=== PATIENT | female | born 1970 | race Caucasian/White ===

== ENCOUNTER 2016-09-11 07:53 | Emergency (ER) | payer BC ==
[2016-09-11 08:05] VITALS: BP 105/72
--- NOTE | 2016-09-11 08:50 | UC ---
Respiratory Complaint HPI - HPI Summary HPI Summary: for past 2 weeks, productive cough, body aches, Saw PCP on Wednesday, prescribed Z pack for bronchitis, and sinus infection , states feeling worse with sob and productive cough. Sinuses still hurt but slightly better. today is last day of zpack. no nebulizer, inhaler, steroid or CXR were ordered. + smoker. hasnt smoked in 4 days due to illness and determined to quit now. using netti pot tid but no steroid nasal spray. Had back pain with cough last night but that has resolved since then. denies chest pain. breathing feels tight. - History of Current Complaint Chief Complaint: UCGeneralIllness Stated Complaint: COUGH,SINUSES,BACK/CHEST PAIN Time Seen by Provider: 09/11/16 08:49 Hx Last Menstrual Period: 08/29/16 - Allergies/Home Medications Allergies/Adverse Reactions: Allergies Allergy/AdvReac Type Severity Reaction Status Date / Time Mesalamine [From Pentasa] Allergy Fever Verified 09/11/16 08:05 Home Medications: Home Medications Azithromycin TAB* [Zithromax TAB (Z-ANTOINETTE) 250 mg #6 tabs] 250 mg PO DAILY [History Confirmed 09/11/16] PMH/Surg Hx/FS Hx/Imm Hx Previously Healthy: Yes Endocrine History Of: Denies: Diabetes Cardiovascular History Of: Denies: Hypertension, Congestive Heart Failure GI/ History Of: Denies: Renal Disease - Surgical History Surgical History: Yes Surgery Procedure, Year, and Place: no abdomen surgery; tubal ligation 1999; Rt ankle with ORIF @ [facility] with Dr. Eli 14 yrs ago; Rt achilles tendon repair too; - Family History Known Family History: Negative: Respiratory Disease - no asthma - Social History Alcohol Use: Weekly Substance Use Type: None Smoking Status (MU): Heavy Every Day Tobacco Smoker Type: Cigarettes Amount Used/How Often: 1/2 ppd Length of Time of Smoking/Using Tobacco: 20 yrs Have You Smoked in the Last Year: Yes Review of Systems Constitutional: Fatigue Skin: Negative Eyes: Negative ENT: Negative, Other - sinus pain over forehead and cheeks. Respiratory: Negative Cardiovascular: Negative Gastrointestinal: Negative Genitourinary: Negative Motor: Negative Neurovascular: Negative Musculoskeletal: Negative Neurological: Negative Psychological: Negative All Other Systems Reviewed And Are Negative: Yes Physical Exam Triage Information Reviewed: Yes Appearance: Well-Nourished, Ill-Appearing - moderate cough, very pleasant. Vital Signs: Initial Vital Signs Temp 98.4 F 09/11/16 08:00 Pulse 76 09/11/16 08:00 Resp 16 09/11/16 08:00 BP 105/72 09/11/16 08:00 Pulse Ox 98 09/11/16 08:00 Vital Signs Reviewed: Yes Eye Exam: Normal ENT: Positive: Pharyngeal erythema, Nasal drainage, TMs normal, Other: - + b/l sinus tenderness. Negative: Tonsillar swelling, Tonsillar exudate Dental Exam: Normal Neck exam: Normal Neck: Positive: Supple, Nontender, No Lymphadenopathy Respiratory: Positive: No respiratory distress, No accessory muscle use, Decreased breath sounds, Rhonchi, Wheezing. Negative: Stridor Cardiovascular Exam: Normal Cardiovascular: Positive: RRR, No Murmur, Pulses Normal, Brisk Capillary Refill Abdomen Description: Positive: Nontender, Soft Musculoskeletal Exam: Normal Neurological Exam: Normal Psychological Exam: Normal Skin Exam: Normal UC Diagnostic Evaluation - Laboratory O2 Sat by Pulse Oximetry: 98 Re-Evaluation - Re-Evaluation First Eval Re-Evaluation Time: 09:20 Change: Improved - much improved after nebulizer, mild wheezing only. feels better with lessening cough. Respiratory Course/Dx - Course Course Of Treatment: CXR - neg. alb neb - improved. We discusse risks of prednisone including but not limited to anxiety, agitation, insomnia, GI upset, elevated blood pressures and blood sugar readings, adrenal crisis and avascular necrosis of the hip. She has very well controlled h/o crohns and is not requiring meds at this time. was on entecort in the past. - Differential Dx/Diagnosis Differential Diagnosis/HQI/PQRI: Asthma, Bronchitis, Sinusitis, Other - pneumonia Provider Diagnoses: sinusitis, smoker Discharge - Discharge Plan Condition: Stable Disposition: HOME Prescriptions: Albuterol HFA INHALER* [Ventolin HFA Inhaler*] 2 puff INH Q4H PRN #1 mdi PRN Reason: Cough Methylprednisolone [Medrol Dosepak 4 MG*] 4 mg PO DAILY #1 antoinette Patient Education Materials: Sinusitis (ED), Acute Bronchitis (ED) Forms: *Work Release Referrals: Julissa Gonzalez MD [Primary Care Provider] - 3 Days Additional Instructions: Continue with saline rinses and add OTC steroid nasal spray such as flonase. Take an OTC probiotic every day that you are on an antibiotic to help prevent complications of c diff from antibiotic use. Tylenol for pain/discomfort/fever.
[2016-09-11] MEDS ORDERED: Albuterol 2.5 MG/3 ML NEB.SOL* (0.083%) INH ONE (08:55)
--- NOTE | 2016-09-11 09:09 | RAD ---
INDICATION: Cough, wheezing, smoker. COMPARISON: There are no prior studies available for comparison. TECHNIQUE: Dual-energy PA and lateral views of the chest were obtained. FINDINGS: The heart is within normal limits in size. Mediastinal and hilar contours appear within normal limits. The lungs are clear. No pleural effusion is present. IMPRESSION: NO EVIDENCE FOR ACTIVE CARDIOPULMONARY DISEASE.
== END 2016-09-11 09:35 | disposition home or self-care (01) ==
LOC: UCCORT 07:53
DX: J32.9 Chronic sinusitis, unspecified (principal); Z88.8 Allergy status to other drugs, medicaments and biological substances; F17.210 Nicotine dependence, cigarettes, uncomplicated
CPT/HCPCS: 71020; 99212; G0463

== ENCOUNTER 2017-01-12 15:00 | Emergency (ER) | payer BC ==
[2017-01-12 15:24] VITALS: BP 113/73
--- NOTE | 2017-01-12 15:40 | UC ---
Complaint Female HPI - HPI Summary HPI Summary: patient has had dysuria, increased frequency and lower abdominal pressure for the past 2 days. - History Of Current Complaint Chief Complaint: UCGU Stated Complaint: URINARY Time Seen by Provider: 01/12/17 15:11 Hx Obtained From: Patient Hx Last Menstrual Period: 12/21/16 Onset/Duration: Sudden Onset, Lasting Days Timing: Lasting Days Severity Initially: Mild Severity Currently: Mild Character: Burning Aggravating Factor(s): Urination Associated Signs And Symptoms: Positive: Negative - Allergies/Home Medications Allergies/Adverse Reactions: Allergies Allergy/AdvReac Type Severity Reaction Status Date / Time Mesalamine [From Pentasa] Allergy Fever Verified 01/12/17 15:18 Home Medications: Home Medications Loratadine [Claritin 10 MG CAP] 10 mg PO DAILY 01/12/17 [History Confirmed 01/12] PMH/Surg Hx/FS Hx/Imm Hx Previously Healthy: Yes - Surgical History Surgical History: Yes Surgery Procedure, Year, and Place: no abdomen surgery; tubal ligation 1999; Rt ankle with ORIF @ [facility] with Dr. Eli 14 yrs ago; Rt achilles tendon repair too; - Family History Known Family History: Negative: Respiratory Disease - no asthma - Social History Alcohol Use: Weekly Substance Use Type: None Smoking Status (MU): Heavy Every Day Tobacco Smoker Type: Cigarettes Amount Used/How Often: 1/2-1 PPD Length of Time of Smoking/Using Tobacco: 20 yrs Have You Smoked in the Last Year: Yes Review of Systems Constitutional: Negative Skin: Negative Eyes: Negative ENT: Negative Respiratory: Negative Cardiovascular: Negative Gastrointestinal: Negative Genitourinary: Dysuria, Hematuria, Frequency, Urgency Motor: Negative Neurovascular: Negative Musculoskeletal: Negative Neurological: Negative Psychological: Negative All Other Systems Reviewed And Are Negative: Yes Physical Exam Triage Information Reviewed: Yes Appearance: Well-Appearing, Well-Nourished, Pain Distress Vital Signs: Initial Vital Signs Temp 98.4 F 01/12/17 15:19 Pulse 59 01/12/17 15:19 Resp 16 01/12/17 15:19 BP 113/73 01/12/17 15:19 Pulse Ox 100 01/12/17 15:19 Vital Signs Reviewed: Yes Eye Exam: Normal Eyes: Positive: Conjunctiva Clear ENT Exam: Normal Dental Exam: Normal Neck exam: Normal Neck: Positive: Supple, Nontender, No Lymphadenopathy Respiratory Exam: Normal Respiratory: Positive: Chest non-tender, Lungs clear, Normal breath sounds Cardiovascular Exam: Normal Cardiovascular: Positive: RRR, No Murmur, Pulses Normal Abdominal Exam: Normal Abdomen Description: Positive: No Organomegaly, Soft, CVA Tenderness (R) - neg, CVA Tenderness (L) - neg, Other: - lower abdominal tenderness with palpation Bowel Sounds: Positive: Present Musculoskeletal Exam: Normal Musculoskeletal: Positive: Strength Intact, ROM Intact Neurological Exam: Normal Psychological Exam: Normal Skin Exam: Normal Complaint Female Dx - Course Course Of Treatment: hx obtained, exam performed ,meds reviewed, UA and culture obtained, treated for UTI - Differential Dx/Diagnosis Differential Diagnosis/HQI/PQRI: Sexually Transmitted Disease, Ureteral Stone, Urinary Tract Infection Provider Diagnoses: Dysuria. hematuria Discharge - Discharge Plan Condition: Stable Disposition: HOME Prescriptions: Ciprofloxacin TAB* [Cipro 500 MG TAB*] 500 mg PO BID #6 tab Patient Education Materials: Dysuria (ED) Referrals: Julissa Gonzalez MD [Primary Care Provider] - Additional Instructions: 1. take the medication as prescribed. 2. Increase fluid intake 3. Continue with AZO for the next 24 hours. 4. Culture will be sent and if further treatment is needed we will be calling you.
== END 2017-01-12 15:44 | disposition home or self-care (01) ==
LOC: UCCORT 15:00
DX: R30.0 Dysuria (principal); R31.9 Hematuria, unspecified; F17.210 Nicotine dependence, cigarettes, uncomplicated
CPT/HCPCS: 81003; 87086; 99212; G0463

== ENCOUNTER 2017-06-11 09:23 | Emergency (ER) | payer BC ==
--- NOTE | 2017-06-11 09:44 | UC ---
Throat Pain/Nasal Rashel HPI - HPI Summary HPI Summary: 47 year old female presents with complains sore throat. - History of Current Complaint Stated Complaint: SORE THROAT RESPIRATORY Time Seen by Provider: 06/11/17 09:43 Hx Obtained From: Patient Hx Last Menstrual Period: 12/21/16 Onset/Duration: Sudden Onset Severity: Moderate Pain Scale Used: 0-10 Numeric - 7 Cough: Nonproductive Associated Signs & Symptoms: Positive: Dysphagia - Allergies/Home Medications Allergies/Adverse Reactions: Allergies Allergy/AdvReac Type Severity Reaction Status Date / Time Mesalamine [From Pentasa] Allergy Fever Verified 06/11/17 09:47 Home Medications: Home Medications Budesonide [Entocort EC] 3 tab DAILY 06/11/17 [History Confirmed 06/11/17] PMH/Surg Hx/FS Hx/Imm Hx Previously Healthy: Yes - Surgical History Surgical History: Yes Surgery Procedure, Year, and Place: no abdomen surgery; tubal ligation 1999; Rt ankle with ORIF @ [facility] with Dr. lEi 14 yrs ago; Rt achilles tendon repair too; - Family History Known Family History: Negative: Respiratory Disease - no asthma - Social History Alcohol Use: Weekly Substance Use Type: None Smoking Status (MU): Heavy Every Day Tobacco Smoker Type: Cigarettes Amount Used/How Often: 1/2-1 PPD Length of Time of Smoking/Using Tobacco: 20 yrs Have You Smoked in the Last Year: Yes Review of Systems Constitutional: Negative Skin: Negative Eyes: Negative ENT: Sore Throat, Nasal Discharge, Sinus Congestion, Sinus Pain/Tenderness Respiratory: Negative Cardiovascular: Negative Gastrointestinal: Negative Genitourinary: Negative Motor: Negative Neurovascular: Negative Musculoskeletal: Negative Neurological: Negative Psychological: Negative All Other Systems Reviewed And Are Negative: Yes Physical Exam Triage Information Reviewed: Yes Vital Signs Reviewed: Yes Eye Exam: Normal ENT: Positive: Pharyngeal erythema, Nasal congestion, Nasal drainage Dental Exam: Normal Neck exam: Normal Neck: Positive: 1 Respiratory Exam: Normal Cardiovascular Exam: Normal Abdominal Exam: Normal Musculoskeletal Exam: Normal Neurological Exam: Normal Psychological Exam: Normal Skin Exam: Normal Throat Pain/Nasal Course/Dx - Differential Dx/Diagnosis Provider Diagnoses: pharyngitis Discharge - Discharge Plan Condition: Stable Disposition: HOME Prescriptions: Azithromyxin ELIAS (NF) [Z-Elias (Zithromax) 250 mg tabs #6] 2 tab PO .TODAY, THEN 1 DAILY #6 tab LoraTADine TAB(NF) [Claritin 10 MG TAB(NF)] 10 mg PO DAILY #30 tab Magic M W2 Magdi/Maal/Nyst/Lido* 5 ml SWISH SPIT QID PRN #120 ml PRN Reason: Pain Patient Education Materials: Pharyngitis (ED) Referrals: Julissa Gonzalez MD [Primary Care Provider] -
[2017-06-11 09:53] VITALS: BP 125/73
== END 2017-06-11 10:13 | disposition home or self-care (01) ==
LOC: UCCORT 09:23
DX: J02.9 Acute pharyngitis, unspecified (principal); F17.210 Nicotine dependence, cigarettes, uncomplicated
CPT/HCPCS: 87651; 99212; G0463

== ENCOUNTER 2017-10-19 17:46 | Emergency (ER) | payer BC ==
[2017-10-19 18:06] VITALS: BP 130/66
--- NOTE | 2017-10-19 18:27 | UC ---
Upper Extremity HPI - HPI Summary HPI Summary: 47 yo F with left wrist pain that she awoke with this am. States she golfed yest for the first time in months. No definite recalled injury. Also types for work. Has had ankle surg and left Achilles tendon surg in the past. Denies neck pain, or arm pain, and pain does not radiate. Is able to flex and extend her hand and wrist. Took ibuprofen for pain that helped with the pain. States she awoke with it in a "funny position", tucked under her head this am. - History of Current Complaint Chief Complaint: UCUpperExtremity Stated Complaint: LEFT WRIST PAIN Time Seen by Provider: 10/19/17 18:02 Hx Obtained From: Patient Hx Last Menstrual Period: 10/03/17 ?: No Onset/Duration: Sudden Onset Severity Initially: Moderate Severity Currently: Moderate Pain Intensity: 7 Pain Scale Used: 0-10 Numeric Location Of Pain: Is Discrete @ - left wrist Character: Dull, Aching Aggravating Factor(s): Movement, Lifting, Extension Alleviating Factor(s): Compression Associated Signs And Symptoms: Positive: Negative Related History: Dominant Hand Right - Allergies/Home Medications Allergies/Adverse Reactions: Allergies Allergy/AdvReac Type Severity Reaction Status Date / Time mesalamine Allergy Fever Verified 10/19/17 18:08 PMH/Surg Hx/FS Hx/Imm Hx Previously Healthy: Yes - Surgical History Surgical History: Yes Surgery Procedure, Year, and Place: no abdomen surgery; tubal ligation 1999; Rt ankle with ORIF @ [facility] with Dr. Eli 14 yrs ago; Rt achilles tendon repair too; - Family History Known Family History: Negative: Respiratory Disease - no asthma - Social History Occupation: Employed Full-time Alcohol Use: Weekly Substance Use Type: None Smoking Status (MU): Heavy Every Day Tobacco Smoker Type: Cigarettes Amount Used/How Often: 1/2-1 PPD Length of Time of Smoking/Using Tobacco: 20 yrs Have You Smoked in the Last Year: Yes - Immunization History Most Recent Influenza Vaccination: NO Review of Systems Constitutional: Negative Skin: Negative Respiratory: Negative Cardiovascular: Negative Gastrointestinal: Negative Motor: Other - pain with ROM left wrist Neurovascular: Negative Musculoskeletal: Arthralgia - pain left wrist Neurological: Negative Psychological: Negative Is Patient Immunocompromised?: No All Other Systems Reviewed And Are Negative: Yes Physical Exam Triage Information Reviewed: Yes Appearance: Well-Appearing, Well-Nourished, Pain Distress Vital Signs: Initial Vital Signs Temp 99.3 F 10/19/17 18:01 Pulse 67 10/19/17 18:01 Resp 17 10/19/17 18:01 BP 130/66 10/19/17 18:01 Pulse Ox 99 10/19/17 18:01 Vital Signs Reviewed: Yes Eyes: Positive: Conjunctiva Clear ENT: Positive: Normal ENT inspection Neck: Positive: Supple, Nontender, No Lymphadenopathy Respiratory: Positive: No respiratory distress Cardiovascular: Positive: Pulses Normal, Brisk Capillary Refill Musculoskeletal: Positive: Strength Intact, ROM Intact, Other: - point tenderness just distal to ulnar styloid, no bony tenderness, min swelling, no redness, full ROM, sensation intact. No hand pain, swelling or tenderness, no elbow or shoulder pain swelling or tenderness Neurological: Positive: Alert Psychological Exam: Normal Skin Exam: Normal Diagnostics - Radiology left wrist Xray Interpretation: Positive (See Comments) Radiology Interpretation Completed By: Radiologist Upper Extremity Course/Dx - Course Course Of Treatment: xray with age indeterminate avulsion fracture. Advised pt to wear cock up splint and have definite follow up with Dr. Celestin in 1-2 days. - Differential Dx/Diagnosis Differential Diagnosis/HQI/PQRI: Contusion, Fracture (Closed), Strain, Sprain Provider Diagnoses: left wrist pain. left wrist avulsion fracture. left wrist sprain Discharge - Sign-Out/Discharge Documenting (check all that apply): Discharge/Admit/Transfer - discharge home - Discharge Plan Condition: Stable Disposition: HOME Patient Education Materials: Wrist Sprain (ED) Forms: *Work Release Referrals: Anuel Celestin MD [Medical Doctor] - 1 Day (eval for avulsion fracture, acute vs remote ) Julissa Gonzalez MD [Primary Care Provider] - Additional Instructions: We have given you a wrist splint that you may wear until you are seen by Dr. Celestin, the orthopedist. The xray shows a possible avulsion (chip fracture), where the tendon sometimes pulls off a chip of bone. It is uncertain from the xray whether this is old or new, and may represent a new fracture, or may be aggravation of a prior undetected injury. Please wear the splint until you are seen by Dr. Celestin. 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 Celestin can see you. You may take ibuprofen, elevate the wrist, use ice, and rest the wrist as much as possible. Return to urgent care if you have new or worsening symptoms. - Billing Disposition and Condition Condition: STABLE Disposition: HOME
--- NOTE | 2017-10-19 18:38 | RAD ---
HISTORY: Left wrist pain COMPARISONS: None VIEWS: 3, Frontal, lateral, and oblique views of the left wrist FINDINGS: BONE DENSITY: Normal. BONES: There is no displaced fracture. There is a well-corticated bone fragment along the dorsal aspect of the ulnar styloid process. There are small bone fragments along the dorsal aspect of the proximal carpal row. JOINTS: There is no arthropathy. ALIGNMENT: There is no dislocation. SOFT TISSUES: Unremarkable. OTHER FINDINGS: None. IMPRESSION: 1. SMALL BONE FRAGMENT ALONG THE DORSAL ASPECT OF THE DORSAL CARPAL ROW SMALL BONE FRIENDS ALONG THE DORSAL ASPECT OF THE PROXIMAL CARPAL ROW WHICH MAY REFLECT AVULSION INJURY. 2. WELL CORTICATED BONE FRAGMENT OF THE ULNAR STYLOID PROCESS WHICH MAY REFLECT REMOTE AVULSION INJURY.
== END 2017-10-19 19:05 | disposition home or self-care (01) ==
LOC: UCCORT 17:46
DX: S52.612A Displaced fracture of left ulna styloid process, initial encounter for closed fracture (principal); S62.102A Fracture of unspecified carpal bone, left wrist, initial encounter for closed fracture; S63.502A Unspecified sprain of left wrist, initial encounter; X58.XXXA Exposure to other specified factors, initial encounter; Y92.9 Unspecified place or not applicable; F17.210 Nicotine dependence, cigarettes, uncomplicated; Z88.8 Allergy status to other drugs, medicaments and biological substances
CPT/HCPCS: 99212; G0463

== ENCOUNTER 2019-04-27 11:53 | Inpatient (IN) | payer BC ==
[2019-04-27] MEDS ORDERED: Morphine 4 MG/ML VIAL (1 ml) 4 MG/ML VIAL IV ONE ×2 (12:15→15:03)
[2019-04-27] MEDS ORDERED: Ondansetron INJ* 2 MG/ML VIAL IV ONE (12:15)
--- NOTE | 2019-04-27 12:17 | ED ---
Abdominal Pain/Female - HPI Summary HPI Summary: This patient is a 49-year-old female with a history of mild Crohn's presenting to the ED with a 4 day history of nausea, vomiting, bloating, abdominal pain diffusely throughout, watery diarrhea which is malodorous and decreased by mouth intake. She states on Wednesday, 4 days ago, she developed nausea and vomiting with associated abdominal pain. Since then she has had no other vomiting episodes, however endorses bloating as well as profuse diarrhea, approximately 3-4 times per day which is watery in consistency. She does have a history of Crohn's however has never had anything to this severity before. She denies any fevers, sweats, chills. Since 4 days ago, she has only had 1 L of nicole mandy as well as a few crackers, however has not eaten anything otherwise. Abd surgeries include tubal ligation in 1999. Last PO intake was 1 cracker and 1 cup of water at around 7am. Has not taken any medications over the counter for relief until this morning when she took gas-x. Pt currently taking Endocort, but has been trying to reduce, so has only been taking 1 tab instead of 3. - last dose 4 days ago. Pain rated 10/10. N/V/D 4/10. Endorses smoking hx. - History of Current Complaint Chief Complaint: EDAbdPain Stated Complaint: SEVERE ABDOMINAL PAIN PER PT Time Seen by Provider: 04/27/19 12:05 Hx Obtained From: Patient Hx Last Menstrual Period: 10/03/17 ?: No Onset/Duration: Sudden Onset Timing: Constant Severity Initially: Moderate Severity Currently: Moderate Pain Intensity: 10 Pain Scale Used: 0-10 Numeric Location: Diffuse Radiates: No Character: Cramping Aggravating Factor(s): Nothing Alleviating Factor(s): Nothing Associated Signs and Symptoms: Positive: Decreased Appetite, Nausea, Vomiting, Diarrhea - Risk Factors Ectopic Risk Factor: Negative Ovarian Torsion Risk Factor: Negative Allergies/Adverse Reactions: Allergies Allergy/AdvReac Type Severity Reaction Status Date / Time mesalamine Allergy Fever Verified 04/27/19 11:56 Home Medications: Home Medications Simethicone [Gas-X Extra Strength] 125 mg PO DAILY 04/27/19 [History Confirmed 04/27/19] PMH/Surg Hx/FS Hx/Imm Hx Previously Healthy: Yes Endocrine/Hematology History: Denies: Hx Diabetes, Hx Systemic Lupus Erythematosus Cardiovascular History: Denies: Hx Congestive Heart Failure, Hx Hypertension History: Denies: Hx Dialysis, Hx Renal Disease Musculoskeletal History: Denies: Hx Rheumatoid Arthritis - Cancer History Hx Chemotherapy: No - Surgical History Surgery Procedure, Year, and Place: no abdomen surgery; tubal ligation 1999; Rt ankle with ORIF @ [facility] with Dr. Eli 14 yrs ago; Rt achilles tendon repair too; - Immunization History Hx Pertussis Vaccination: No Immunizations Up to Date: Yes Infectious Disease History: No Infectious Disease History: Denies: Traveled Outside the [place] in Last 30 Days - Family History Known Family History: Negative: Respiratory Disease - no asthma - Social History Occupation: Employed Full-time Lives: With Family Alcohol Use: Weekly Hx Substance Use: No Substance Use Type: Reports: None Hx Tobacco Use: Yes Smoking Status (MU): Heavy Every Day Tobacco Smoker Type: Cigarettes Amount Used/How Often: 1/2-1 PPD Length of Time of Smoking/Using Tobacco: 20 yrs Have You Smoked in the Last Year: Yes Review of Systems Negative: Fever, Chills, Fatigue, Skin Diaphoresis Negative: Epistaxis, Dental Pain Negative: Palpitations, Chest Pain Positive: Abdominal Pain, Vomiting, Diarrhea, Nausea Genitourinary: Negative Positive: no symptoms reported, see HPI Negative: Arthralgia, Myalgia Skin: Negative All Other Systems Reviewed And Are Negative: Yes Physical Exam Triage Information Reviewed: Yes Vital Signs On Initial Exam: Initial Vitals Temp Pulse Resp BP Pulse Ox 96.9 F 85 16 128/96 98 04/27/19 11:53 04/27/19 11:53 04/27/19 11:53 04/27/19 11:53 04/27/19 11:53 Vital Signs Reviewed: Yes Appearance: Positive: Well-Appearing, Well-Nourished Skin: Positive: Warm, Skin Color Reflects Adequate Perfusion Head/Face: Positive: Normal Head/Face Inspection Eyes: Positive: EOMI, DARIN, Conjunctiva Clear Neck: Positive: Supple, No Lymphadenopathy Respiratory/Lung Sounds: Positive: Clear to Auscultation, Breath Sounds Present Cardiovascular: Positive: RRR, Pulses are Symmetrical in both Upper and Lower Extremities Abdomen Description: Positive: Other: - painful throughout Bowel Sounds: Positive: Present Musculoskeletal: Positive: Normal, Strength/ROM Intact Neurological: Positive: Speech Normal Psychiatric: Positive: Normal, Affect/Mood Appropriate AVPU Assessment: Alert Procedures - Sedation Patient Received Moderate/Deep Sedation with Procedure: No Diagnostics - Vital Signs Vital Signs Temp Pulse Resp BP Pulse Ox 04/27/19 11:53 96.9 F 85 16 128/96 98 - Laboratory Result Diagrams: 04/27/19 12:29 04/27/19 12:29 Lab Statement: Any lab studies that have been ordered have been reviewed, and results considered in the medical decision making process. Re-Evaluation - Re-Evaluation First Eval Change: Improved - improved following morphine and zofran Second Eval Change: Worse - pain resuming, requesting morphine again Third Eval Change: Unchanged - pain improved, offered NG tube - pt refused at this time Fourth Eval Change: Unchanged - Dr. Latham to see patient in room - hospitalist will admit Abdominal Pain Fem Course/Dx - Course Course Of Treatment: During his course of treatment, the patient's evaluated for nausea, vomiting, watery diarrhea which has since subsided, the past 4 days. Patient has not been able to eat and drink for the last 4 days and feels extremely bloated. Abdominal surgeries include tubal ligation in 1999. Patient is given morphine and Zofran with some relief. She continues to feel bloated, but pain and nausea has decreased. CT abdomen/pelvis obtained which shows small bowel obstruction with bowel loops measuring up to 4.4 cm transversely. There is mucosal thickening and enhancement of the distal small bowel. The differential includes inflammatory bowel disease. There is small amount of ascites. There is no appreciable free intraperitoneal gas. On reexamination, patient is continuing to have pain, so at this time 4 mg of morphine ordered as well as offered an NG tube. Patient is deferring at this time. Discussed case with Dr. Baca who suggests GI consult. Discussed with Dr. Latham who agrees GI will consult and suggests medical management. Dr Knowles, hospitalist will admit for medical management. Pt comfortable at this time and OK with plan. Labs WNL. - Diagnoses Differential Diagnosis: Positive: Other - adhesions, N/V/D, crohns disease, IBD Provider Diagnoses: Small bowel obstruction - Provider Notifications Discussed Care Of Patient With: Harvinder Latham - discussed with Dr. Baca and Dr. Knowles Time Discussed With Above Provider: 15:00 Instructed by Provider To: Admit As Inpatient Discharge ED - Sign-Out/Discharge Documenting (check all that apply): Patient Departure - Discharge Plan Condition: Fair Disposition: ADMITTED TO [facility] - Billing Disposition and Condition Condition: FAIR Disposition: Admitted to [facility] - Attestation Statements Provider Attestation: pt seen by midlevel provider independently, based on their assessment, it was not necessary to present the case to me but I was available for consultation. I did not form a physician-patient relationship with the patient. The chart however, has been reviewed. am signing this note strictly in an administrative capacity.
[2019-04-27 12:39] LABS: ABS Basophils 0.1 10^3/ul (0-0.2); ABS Eosinophils 0.1 10^3/ul (0-0.6); ABS Lymphocytes 1.1 10^3/ul (1.0-4.8); ABS Monocytes 0.5 10^3/ul (0-0.8); ABS Neutrophils 6.1 10^3/ul (1.5-7.7); Eosinophil % 1.6 %; Hematocrit 43 % (35-47); Hemoglobin 14.4 g/dL (12.0-16.0); Lymphocyte % 14.5 %; Mean Corpuscular HGB Conc 33 g/dL (31-36); Mean Corpuscular Hemoglobin 31 pg (27-31); Mean Corpuscular Volume 92 fL (80-97); Mean Platelet Volume 7.7 fL (7.4-10.4); Nucleated Red Blood Cells % 0.1; Platelet Count 289 10^3/uL (150-450); Red Blood Count 4.67 10^6 /uL (3.70-4.87); Red Cell Distribution Width 14 % (10-15); White Blood Count 7.9 10^3/uL (3.5-10.8)
[2019-04-27 12:42] LABS: INR 1.04 (0.82-1.09)
[2019-04-27 13:00] LABS: ALT 12 U/L (7-52); AST 11 U/L (13-39); Albumin/Globulin Ratio 1.3 (1-3); Alkaline Phosphatase 64 U/L (34-104); Anion Gap 9 mmol/L (2-11); BUN/Creatinine Ratio 15.1 (8-20); Blood Urea Nitrogen 11 mg/dL (6-24); C Reactive Protein 81.42 mg/L (<8.01); CO2 Carbon Dioxide 23 mmol/L (22-32); Calcium 9.2 mg/dL (8.6-10.3); Chloride 103 mmol/L (101-111); EGFR African American 101.7 (>60); Globulin 3.2 g/dL (2-4); Glucose 109 mg/dL (70-100); Magnesium 1.7 mg/dL (1.9-2.7); Potassium 3.4 mmol/L (3.5-5.0); Sodium 135 mmol/L (135-145); Total Protein 7.2 g/dL (6.4-8.9)
[2019-04-27 13:03] LABS: HCG Pregnancy 0.86 mIU/mL
[2019-04-27] MEDS ORDERED: Iohexol 300* (CONTRAST) 10 ML SDV IV ONE (13:55)
[2019-04-27] MEDS ORDERED: Magnesium Sulfate 2 GM IV* 2 GM/50 ML BAG IVPB ONE (15:16)
[2019-04-27] MEDS ORDERED: methylPREDNISolone SOD 40 MG* 1 ML VIAL IM SCH (16:00)
[2019-04-27] MEDS ORDERED: Lidocaine 2% VISCOUS* 15 ML UDC ONE ×2 (16:06→16:14)
--- NOTE | 2019-04-27 16:30 | CONS ---
CC: Dr. Ng * CONSULTATION REPORT: DATE OF CONSULT: 04/27/19 REQUESTING PHYSICIAN: Dr. aTmmy Knowles. REASON FOR CONSULT: Small bowel obstruction, Crohn's. HISTORY OF PRESENT ILLNESS: This is a very pleasant 49-year-old female with a history of predominantly ileal Crohn's, who presented to the ER with a 4-day history of nausea, vomiting, and abdominal pain and distention. Her pain has been diffuse, increasing over the last 2 to 3 days. She states that she has not passed flatus today. She denies any black or blood in the stool. She states that the stool has been more liquidy over the last few movements, having about 3 to 4 movements a day that are purely liquid in nature. Three to four days ago, she had a subjective fever with chills, but has not had any since. Denies any skin rash or lesions. Denies any weight gain or weight loss. She takes budesonide on a daily basis. She titrates this according to her symptomatology. She is currently on 1 pill daily. She has never been on a biologic. She has never had a resection. Her last colonoscopy was done in 2017 , which did not show any colonic activity of Crohn's. Remainder of the 14- point review of systems is grossly negative. PAST MEDICAL HISTORY: Small bowel Crohn's. PAST SURGICAL HISTORY: Tubal ligation, right ankle surgery, Achilles surgery. HOME MEDICATIONS: Budesonide 3 mg daily. ALLERGIES: No known drug allergies. FAMILY HISTORY: No family history of GI cancer or inflammatory bowel disease. SOCIAL HISTORY: Tobacco smoker, half pack to pack per day. Social alcohol use. REVIEW OF SYSTEMS: Remainder of the 14-point review of systems is grossly negative except for as described in the HPI. PHYSICAL EXAM: Vital Signs: Blood pressure is 128/96, pulse is 85, respiratory rate is 16, 98% on room air, temperature is 96.9. In general, alert and oriented x3, in no acute distress. HEENT: Atraumatic, normocephalic. Pupils equal, round, reactive to light. Extraocular movements are intact. Conjunctivae are pink. Sclerae are anicteric. Cardiovascular: Regular rate and rhythm. S1, S2. Respiratory: Clear to auscultation bilaterally. Abdomen: Soft. Mild diffuse tenderness to palpation, mild distention. Bowel sounds hypoactive. No guarding or rebound. Extremities: No clubbing, no cyanosis. Skin is without rash. Psych: Appropriate mood and affect. DIAGNOSTIC STUDIES/LAB DATA: Hemoglobin 14.4, WBC count is 7.9. INR 1.04. Potassium 3.4, lactic acid 0.7, magnesium 1.7. AST is 11, ALT is 12. CRP is 81.42. Beta hCG is 0.86. She had a CT done of the abdomen and pelvis. This was personally reviewed by myself. It reveals dilation of loops of the small bowel with a transition point around the distal terminal ileum. There is thickening and enhancement of this area. ASSESSMENT AND PLAN: This is a 49-year-old female with a history of predominantly small bowel Crohn's, admitted with a small bowel obstruction. 1. Small bowel obstruction. Appears like it may be inflammatory in nature given CT findings. I will do a trial of IV steroids. We would get stool cultures to make sure there is no infection, but we would not delay steroids given the patient does not have a fever and does not have a WBC count. Agree with surgical consult. Given the fact that she is not passing any flatus today , I think it is appropriate to place an NG tube to help accelerate decompression. I recommend having the surgical team follow in the periphery in case if services are needed. Hopefully, the steroids will turn her around. She may ultimately need escalation of her Crohn's therapy. In preparation for this, I would get a hepatitis serology and QuantiFERON-TB Gold in case a biologic is needed in the future. We will keep the patient n.p.o. today. 2. Predominantly small bowel Crohn's, on budesonide at home. Likely will need intensification of therapy. 3. DVT prophylaxis: Needs to be on heparin or Lovenox subcu given high risk of deep venous thrombosis in this patient population for prophylaxis. [id number]/[facility] #: [id number] BRIDGET
[2019-04-27 17:04] LABS: Hepatitis B Surface Antigen Nonreactive (Nonreactive)
[2019-04-27 17:21] LABS: Hepatitis B Surface Ab Not Immune (Immune)
[2019-04-27] MEDS: methylPREDNISolone SOD 40 MG* 1 ML VIAL IV SCH (18:36)
[2019-04-27] MEDS: Morphine 10 MG/ML VIAL (1 ml) IV PRN ×2 (18:37→22:01)
--- NOTE | 2019-04-27 19:35 | HP ---
AMENDED REPORT NOW INCLUDES DESIGNATED COSIGNER ADMISSION HISTORY AND PHYSICAL: DATE OF ADMISSION: 04/27/19 PRIMARY CARE PHYSICIAN: Julissa Gonzalez MD PROVIDER: Shaunna Freitas NP ATTENDING PHYSICIAN: Dr. Knowles.* (DICTATED BY SHAUNNA FREITAS NP) OTHER PROVIDER: Dr. Latham. CHIEF COMPLAINT: Nausea, vomiting, abdominal pain. HISTORY OF PRESENT ILLNESS: This is a 49-year-old female with a past medical history of mild Crohn's who presented to the emergency room on 04/27/19 after a 4- day history of nausea, vomiting, and watery diarrhea. On Wednesday, the patient woke up with nausea, vomited twice and that was last time she has vomited, but since then has been having numerous bouts of diarrhea, which has all been clear and watery in nature. The patient figured that this was stomach bug because it presented differently than her usual flare ups, which typically manifest in diarrhea that quickly resolved after a short period of time and the pain is usually localized in the right lower quadrant; however, at this time, pain has been constant and diffuse throughout the entire abdomen, described as stabbing and pressure. Pain is currently about an 8/10. Also, reported having a headache yesterday as well as this a.m. She states she does not believe there is nothing special that she ate or did that brought this on. In the emergency room, she received up to 4 mg of IV Dilaudid, 4 mg Zofran and no IV fluids. Initially, Dr. Baca of General Surgery was consulted and she felt that there is nothing that she could do at the moment, asked that GI be consulted. Therefore, Dr. Latham came to see the patient in the emergency room. PAST MEDICAL HISTORY: Mild Crohn's disease. PAST SURGICAL HISTORY: 1. Tubal ligation in 1999. 2. Right ankle ORIF in 2004. 3. Right Achilles tendon repair. HOME MEDICATIONS: 1. Bioflex with turmeric 1 cap p.o. daily. 2. Probiotic 1 cap p.o. daily. 3. Nystatin cream topically b.i.d. 4. She also uses budesonide p.o., though did not specify dosage or for how often, though she states she uses it for her Crohn's flare up. ALLERGIES: MESALAMINE. FAMILY HISTORY: Maternal grandfather had diabetes. SOCIAL HISTORY: Smokes a half pack to 1 pack a day for the past 20 years. She drinks 2 times a week, drinks on an average about a 6 pack per sitting. Denies any other recreational substance use. 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 She is and has 2 boys. REVIEW OF SYSTEMS: An 11-point system review was performed and was positive for fevers, chills, nausea, vomiting, diarrhea, abdominal pain. Negative for chest pain or shortness of breath. PHYSICAL EXAMINATION GENERAL: This is a well-developed, obese woman seen resting in the stretcher. Mild distress noted. VITAL SIGNS: 96.9 Fahrenheit, 85 pulse, 16 respirations, 98% oxygen on room air , 128/96 blood pressure. HEENT: Eyes: Conjunctive pink and moist. PERRLA. EOMs intact. ENT: Mucous membranes slightly dry. Oropharynx clear. NECK: Supple. RESPIRATORY: Lungs clear throughout bilaterally on room air. No accessory muscle use noted. CARDIAC: S1, S2 present. Heart rate regular. No murmurs, gallops or rubs appreciated. ABDOMEN: Large, distended, it is somewhat firm and tender throughout with hypoactive bowel sounds x4. MUSCULOSKELETAL: No clubbing or cyanosis of the digits. Full range of motion. SKIN: No rashes or open areas appreciated. NEURO: Moves all extremities. Sensation intact to light touch. No focal deficits appreciated. PSYCH: She is alert and oriented x3. Thought content organized. LABORATORY DATA/DIAGNOSTIC STUDIES: Potassium 3.4, glucose 109, lactic acid 0.7, magnesium 1.7. AST 11. C-reactive protein 81.42. Abdomen/pelvic CT and that showed small bowel obstruction with bowel loops measuring up to 4.4 cm transversely. There is mucosal thickening and enhancement of the distal small bowel. The differential includes inflammatory bowel disease and there is a small amount of ascites. There is no appreciable free intraperitoneal gas. ASSESSMENT AND PLAN: My impression is this is a 49-year-old female with past medical history significant for Crohn's who is admitted on 04/27/19 for small bowel obstruction likely secondary to inflammatory changes in the bowel. 1. Small bowel obstruction. The patient is no longer nauseated, has not had any bouts of vomiting since Wednesday; however, is not passing flatus and abdomen is distended and painful. We will numb nares with viscous lidocaine prior to NG tube insertion. The patient to be kept n.p.o. Dr. Latham in to see the patient, who ordered IV Solu-Medrol as well as hepatitis panel, labs, and stool cultures to rule out any other infectious causes of the abdominal pain and inflammation. We will keep the patient hydrated with D5 half normal saline with 20 of potassium. 2. Hypomagnesia. This is likely due to profuse diarrhea over the past 4 days, level is currently 1.7. The patient will be repleted with 2 g of magnesium IV and recheck mag in the a.m. 3. Hypokalemia. Current level is 3.4, also likely secondary to profuse diarrhea. We will order 3 runs of 20 mEq of IV potassium and recheck BMP in the a.m. The patient is not currently having any palpitations or muscle cramps. 4. DVT prophylaxis. Initiate Lovenox subcu. 5. Code status. Full code. 6. Disposition. Admit the patient to [facility] to [address] [place] [address]. 7. Condition is guarded. TIME SPENT: Time spent with the patient is about 60 minutes with more than half of it spent [id number]. The patient was discussed with my attending, Dr. Knowles and she agrees with the plan of care. [id number]/[facility] #: [id number] MTDD
[2019-04-27] MEDS: Enoxaparin(*) 40 MG/0.4 ML SYR SUBCUT SCH (19:52)
[2019-04-27] MEDS: D5W 1/2 NS KCl 20 Meq 1000 ML* 1,000 ML IV SCH (20:00)
[2019-04-27] MEDS: KCL 20 MEQ/100 ML IVPREMIX* 20 MEQ/100 ML BAG IV SCH ×2 (20:03→23:25)
[2019-04-27 21:54] LABS: Urine Appearance Clear; Urine Bacteria Absent (Absent); Urine Bilirubin Negative (Negative); Urine Blood 2+ (Negative); Urine Color Yellow; Urine Glucose Negative (Negative); Urine Ketones Trace (Negative); Urine Nitrite Negative (Negative); Urine Protein Negative (Negative); Urine Red Blood Cell 1+(3-5/hpf) (Absent); Urine Specific Gravity 1.056 (1.010-1.030); Urine Squamous Epithelial Cell Present (Absent); Urine Urobilinogen Negative (Negative); Urine White Blood Cell Trace(0-5/hpf) (Absent)
[2019-04-28] MEDS: methylPREDNISolone SOD 40 MG* 1 ML VIAL IV SCH ×3 (00:30→15:57)
[2019-04-28] MEDS: Morphine 10 MG/ML VIAL (1 ml) IV PRN ×4 (01:39→14:30)
[2019-04-28] MEDS: KCL 20 MEQ/100 ML IVPREMIX* 20 MEQ/100 ML BAG IV SCH (02:38)
[2019-04-28] MEDS: Ondansetron INJ* 2 MG/ML VIAL IV PRN ×2 (05:13→12:51)
[2019-04-28 06:02] LABS: ABS Lymphocytes 0.6 10^3/ul (1.0-4.8); ABS Monocytes 0.1 10^3/ul (0-0.8); ABS Neutrophils 5.3 10^3/ul (1.5-7.7); Eosinophil % 0.1 %; Hematocrit 41 % (35-47); Hemoglobin 13.8 g/dL (12.0-16.0); Lymphocyte % 9.8 %; Mean Corpuscular HGB Conc 34 g/dL (31-36); Mean Corpuscular Hemoglobin 31 pg (27-31); Mean Corpuscular Volume 92 fL (80-97); Platelet Count 319 10^3/uL (150-450); Red Blood Count 4.46 10^6 /uL (3.70-4.87); Red Cell Distribution Width 14 % (10-15)
[2019-04-28 06:07] LABS: BUN/Creatinine Ratio 18.2 (8-20); CRP High Sensitivity 79.49 mg/L (<2.00); EGFR Non-African American 116.5 (>60); Magnesium 2.1 mg/dL (1.9-2.7); Potassium 4.3 mmol/L (3.5-5.0)
[2019-04-28] MEDS: D5W 1/2 NS KCl 20 Meq 1000 ML* 1,000 ML IV SCH ×2 (06:26→19:34)
[2019-04-28 08:50] LABS: Erythrocyte Sed Rate 34 mm/Hr (0-29)
--- NOTE | 2019-04-28 14:12 | PN ---
Progress Note - Progress Note Date of Service: 04/28/19 Note: doing sl better, decreased abd pain; no flatus VS stable no fever, gen: nad, alert, walking floors abd: distended, hypoactive bs, diffusely tender labs: noted Crohns' flare with psbo; IV steroids, ng, npo, pain meds pt asking for sleep aid Theron Ng MD [facility]
[2019-04-28] MEDS: Phenol 1.4% Spray* 177 ML BTL MT PRN ×2 (14:28→18:09)
[2019-04-28] MEDS: Pantoprazole IV* 40 MG IV SCH (15:57)
[2019-04-28] MEDS: Enoxaparin(*) 40 MG/0.4 ML SYR SUBCUT SCH (18:09)
--- NOTE | 2019-04-28 18:16 | PN ---
Subjective Date of Service: 04/28/19 Interval History: Patient states she is feeling slightly better today, reporting that the pain of the NG tube is worse than the pain in her abdomen, though she still is unable to shift in bed without eliciting abdominal pain. Denies nausea but reports feeling a retrosternal burning that she stated felt like indigestion. Negative for flatus. Does not feel particularly hungry. Denies palpitations, chest pain , shortness of breath, nausea, vomiting or bladder issues. Family History: Unchanged from Admission Social History: Unchanged from Admission Past Medical History: Unchanged from Admission Objective Active Medications: Diphenhydramine HCl (Benadryl Iv*) 25 mg IV ONCE ONE Stop: 04/28/19 21:01 Enoxaparin Sodium (Lovenox(*)) 40 mg SUBCUT Q24H [facility] Last Admin: 04/27/19 19:52 Dose: 40 mg Potassium Chloride/Dextrose (D5w 1/2 Ns Kcl 20 Meq 1000 Ml*) 1,000 mls @ 100 mls/hr IV PER RATE [facility] Last Admin: 04/28/19 06:26 Dose: 100 mls/hr Methylprednisolone Sodium Succinate (Solu-Medrol 40 Mg) 20 mg IV Q8H [facility] Last Admin: 04/28/19 15:57 Dose: 20 mg Morphine Sulfate (Morphine 10 Mg/Ml Vial (1 Ml)) 5 mg IV Q3H PRN PRN Reason: PAIN - SEVERE Last Admin: 04/28/19 14:30 Dose: 5 mg Ondansetron HCl (Zofran Inj*) 4 mg IV Q4H PRN PRN Reason: NAUSEA/VOMITING Last Admin: 04/28/19 12:51 Dose: 4 mg Pantoprazole Sodium (Protonix Iv*) 40 mg IV DAILY [facility] Last Admin: 04/28/19 15:57 Dose: 40 mg Phenol/Menthol (Chloroseptic Throat [place]*) 1 spray MT TID PRN PRN Reason: SORE THROAT Last Admin: 04/28/19 18:09 Dose: 1 spray Vital Signs - 8 hr 04/28/19 04/28/19 04/28/19 11:00 12:38 14:25 Pulse Rate 51 66 Respiratory 16 18 Rate Blood Pressure 135/70 (mmHg) O2 Sat by Pulse 96 Oximetry 04/28/19 04/28/19 14:30 15:58 Pulse Rate Respiratory 18 16 Rate Blood Pressure (mmHg) O2 Sat by Pulse Oximetry Oxygen Devices in Use Now: None Appearance: Well developed woman see sitting up in bed, no acute distress. Eyes: No Scleral Icterus, PERRLA Ears/Nose/Mouth/Throat: NL Teeth, Lips, Gums, Clear Oropharnyx, - - Mucous membranes dry. Neck: NL Appearance and Movements; NL JVP, Trachea Midline Respiratory: Symmetrical Chest Expansion and Respiratory Effort, Clear to Auscultation Cardiovascular: NL Sounds; No Murmurs; No JVD, RRR, No Edema Abdominal: NL Sounds; No Tenderness; No Distention Extremities: No Edema, No Clubbing, Cyanosis Skin: No Rash or Ulcers, No Nodules or Sclerosis Neurological: Alert and Oriented x 3 Lines/Tubes/Other Access: Clean, Dry and Intact Peripheral IV Result Diagrams: 04/28/19 05:34 04/28/19 05:34 Assess/Plan/Problems-Billing Assessment: This is a 49 year old female with a past medical history of mild crohn's admitted 04/27/19 for small bowel obstruction due to intestinal inflammation, likely crohn's flair. - Patient Problems (1) Small bowel obstruction Current Visit: Yes Status: Acute Code(s): K56.609 - UNSP INTESTNL OBST, UNSP TO PARTIAL VERSUS COMPLETE OBST SNOMED Code(s): 819967211 Comment: -Conservative management with NG tube and IV hydration. NG tube has drained around 1100ml's light brown fluid this morning, will keep it in until tomorrow and then reevaluate need. -Negative for flatus, has not had a bowel movement. -Continue methylprednisolone and IV morphine for pain control. -Started on protonix IV. (2) Hypomagnesemia Current Visit: Yes Status: Acute Code(s): E83.42 - HYPOMAGNESEMIA SNOMED Code(s): 119164713 Comment: -Upon admission, magnesium was 1.7. Received 2GM of mag IV, level is currently 2.1, issue resolved. (3) Hypokalemia Current Visit: Yes Status: Acute Code(s): E87.6 - HYPOKALEMIA SNOMED Code( s): 25049942 Comment: -Upon admission, potassium was 3.4, received three 20mEq runs of potassium. Level is now 4.3. Resolved. (4) DVT prophylaxis Current Visit: Yes Status: Acute Code(s): Z29.9 - ENCOUNTER FOR PROPHYLACTIC MEASURES, UNSPECIFIED SNOMED Code(s): 702598630 Comment: -Lovenox (5) Full code status Current Visit: Yes Status: Acute Code(s): Z78.9 - OTHER SPECIFIED HEALTH STATUS SNOMED Code(s): 705960179 Status and Disposition: Condition: Stable Disposition: Admit inpatient. Attending: Bassem Fu
[2019-04-28] MEDS ORDERED: diPHENhydraMINE IV* 50 MG/ML 1 ml VIAL (BENADRYL) IV ONE (21:00)
[2019-04-29] MEDS: methylPREDNISolone SOD 40 MG* 1 ML VIAL IV SCH ×3 (00:59→16:10)
[2019-04-29] MEDS: Pantoprazole IV* 40 MG IV SCH (07:22)
[2019-04-29] MEDS: D5W 1/2 NS KCl 20 Meq 1000 ML* 1,000 ML IV SCH ×2 (07:29→18:55)
--- NOTE | 2019-04-29 08:20 | PN ---
Subjective Date of Service: 04/29/19 Interval History: Patient is in good spirits, seen ambulating around the floor. Stated that she has been walking frequently and opting to not take the morphine so that she does not slow her intestines. NG tube has drained 100mls of brown fluid since noon yesterday. Bowel sounds improved. Is passing flatus and had a liquid bowel movement which was sent for testing. Reports sore throat from NG tube, abdominal pain is minimal. Denies nausea. Family History: Unchanged from Admission Social History: Unchanged from Admission Past Medical History: Unchanged from Admission Objective Active Medications: Enoxaparin Sodium (Lovenox(*)) 40 mg SUBCUT Q24H [facility] Last Admin: 04/28/19 18:09 Dose: 40 mg Potassium Chloride/Dextrose (D5w 1/2 Ns Kcl 20 Meq 1000 Ml*) 1,000 mls @ 100 mls/hr IV PER RATE [facility] Last Admin: 04/29/19 07:29 Dose: 100 mls/hr Influenza Virus Vaccine (Fluarix Quad 4073-3457 Syr) 0.5 ml IM .ONCE ONE Stop: 04/29/19 09:01 Last Admin: 04/29/19 07:22 Dose: 0.5 ml Methylprednisolone Sodium Succinate (Solu-Medrol 40 Mg) 20 mg IV Q8H [facility] Last Admin: 04/29/19 07:22 Dose: 20 mg Morphine Sulfate (Morphine 10 Mg/Ml Vial (1 Ml)) 5 mg IV Q3H PRN PRN Reason: PAIN - SEVERE Last Admin: 04/28/19 14:30 Dose: 5 mg Ondansetron HCl (Zofran Inj*) 4 mg IV Q4H PRN PRN Reason: NAUSEA/VOMITING Last Admin: 04/28/19 12:51 Dose: 4 mg Pantoprazole Sodium (Protonix Iv*) 40 mg IV DAILY [facility] Last Admin: 04/29/19 07:22 Dose: 40 mg Phenol/Menthol (Chloroseptic Throat [place]*) 1 spray MT TID PRN PRN Reason: SORE THROAT Last Admin: 04/28/19 18:09 Dose: 1 spray Vital Signs - 8 hr 04/29/19 04/29/19 03:00 07:00 Temperature 97.4 F 97.7 F Pulse Rate 58 58 Respiratory 16 16 Rate Blood Pressure 130/76 138/73 (mmHg) O2 Sat by Pulse 97 96 Oximetry Oxygen Devices in Use Now: None Appearance: Well developed female seen ambulating in hallway, no acute distress. Eyes: No Scleral Icterus, PERRLA Ears/Nose/Mouth/Throat: NL Teeth, Lips, Gums, Clear Oropharnyx, Mucous Membranes Moist Neck: NL Appearance and Movements; NL JVP, Trachea Midline Respiratory: Symmetrical Chest Expansion and Respiratory Effort, - - Inspiratory Cardiovascular: NL Sounds; No Murmurs; No JVD, RRR, No Edema Abdominal: - - Softer than yesterday, still slightly distended, non-tender, positive bowel soundsx4. Lymphatic: No Cervical Adenopathy Extremities: No Edema, No Clubbing, Cyanosis Skin: No Rash or Ulcers, No Nodules or Sclerosis Neurological: Alert and Oriented x 3 Lines/Tubes/Other Access: Clean, Dry and Intact Naso-enteral Tube - Will be D/ Mathew this AM, Clean, Dry and Intact Peripheral IV Result Diagrams: 04/28/19 05:34 04/28/19 05:34 Assess/Plan/Problems-Billing Assessment: This is a 49 year old female with a past medical history of mild crohn's admitted 04/27/19 for small bowel obstruction due to intestinal inflammation, likely crohn's flair. - Patient Problems (1) Small bowel obstruction Current Visit: Yes Status: Acute Code(s): K56.609 - UNSP INTESTNL OBST, UNSP TO PARTIAL VERSUS COMPLETE OBST SNOMED Code(s): 970391059 Comment: -100mls of NG tube drainage since yesterday at noon. Patient is now passing flatus, had a loose bowel movement. States she feels much better, is ambulating around hallway. -Will discontinue NG tube and order sips of clears. -Continue methylprednisolone and protonix. No reports of indigestion today. (2) Hypomagnesemia Current Visit: Yes Status: Acute Code(s): E83.42 - HYPOMAGNESEMIA SNOMED Code(s): 750991002 Comment: -Upon admission, magnesium was 1.7. Received 2GM of mag IV, level is currently 2.1, issue resolved. (3) Hypokalemia Current Visit: Yes Status: Acute Code(s): E87.6 - HYPOKALEMIA SNOMED Code( s): 55828783 Comment: -Upon admission, potassium was 3.4, received three 20mEq runs of potassium. Level is now 4.3. Resolved. (4) Microscopic hematuria Current Visit: Yes Status: Acute Code(s): R31.29 - OTHER MICROSCOPIC HEMATURIA SNOMED Code(s): 738954552 Comment: -Urine analyzed from in the emergency room had 2+ blood and 1+ RBC. Sample obtain trough void, not straight cath. I consider this to be an incidental finding and do not feel that it requires urgent evaluation due to lack of urinary pain, pressure, frequency or burning and no CVA tenderness. Recommend follow up UA with PCP. (5) DVT prophylaxis Current Visit: Yes Status: Acute Code(s): Z29.9 - ENCOUNTER FOR PROPHYLACTIC MEASURES, UNSPECIFIED SNOMED Code(s): 248620272 Comment: -Lovenox (6) Full code status Current Visit: Yes Status: Acute Code(s): Z78.9 - OTHER SPECIFIED HEALTH STATUS SNOMED Code(s): 637238344 Status and Disposition: Condition: Stable Disposition: Admit inpatient. Attending: Anjel Correa
[2019-04-29] MEDS ORDERED: Influenza VAC *QUAD* 2019-20* 0.5 ML SYRINGE IM ONE (09:00)
[2019-04-29] MEDS ORDERED: diPHENhydraMINE IV* 50 MG/ML 1 ml VIAL (BENADRYL) IV PRN (10:46)
[2019-04-29] MEDS ORDERED: Ketorolac INJ* 30 MG/ML 1 ML VIAL IV PRN (10:47)
--- NOTE | 2019-04-29 13:11 | PN ---
Progress Note - Progress Note Date of Service: 04/29/19 Note: pt fu; doing better, +flatus, +bm, better abd pain; NG out VS: 97.5, 129/58, 57 nad, alert +bs, hypoactive, less pain vs yesterday, no r/g no new labs sbo, likely secondary to CD; continue steroids, ivf, ice chips ok, ambulate will follow Theron Ng MD [facility]
[2019-04-29] MEDS: Ondansetron INJ* 2 MG/ML VIAL IV PRN (14:21)
[2019-04-29] MEDS: Enoxaparin(*) 40 MG/0.4 ML SYR SUBCUT SCH (16:10)
[2019-04-30] MEDS: methylPREDNISolone SOD 40 MG* 1 ML VIAL IV SCH ×4 (00:53→23:45)
[2019-04-30] MEDS: Pantoprazole IV* 40 MG IV SCH (08:02)
[2019-04-30 10:01] LABS: BUN/Creatinine Ratio 18.5 (8-20); Calcium 8.9 mg/dL (8.6-10.3); EGFR African American 116.3 (>60); EGFR Non-African American 96.1 (>60); Magnesium 1.9 mg/dL (1.9-2.7); Potassium 4.1 mmol/L (3.5-5.0)
[2019-04-30 15:07] LABS: TB1 Ag minus Nil Result 0.01 IU/mL
[2019-04-30 15:11] LABS: QuantiferonTb Gold Plus Result Negative (Negative)
[2019-04-30] MEDS: Enoxaparin(*) 40 MG/0.4 ML SYR SUBCUT SCH (16:22)
--- NOTE | 2019-04-30 17:56 | PN ---
Subjective Date of Service: 04/30/19 Interval History: NG tube removed yesterday and patient has no nausea today. Denies vomiting as well. Abd pain improving, especially after flatus. Has had frequent flatus since 4AM today. Had small stool, approx 1 inch in size, which was nonbloody per patient. Denies fever/chills. Tolerated clear liquid diet for lunch and agreeable to full liquid diet for dinner. Family History: Unchanged from Admission Social History: Unchanged from Admission Past Medical History: Unchanged from Admission Objective Active Medications: Diphenhydramine HCl (Benadryl Iv*) 25 mg IV BEDTIME PRN PRN Reason: SLEEP Last Admin: 04/29/19 22:03 Dose: 25 mg Enoxaparin Sodium (Lovenox(*)) 40 mg SUBCUT Q24H [facility] Last Admin: 04/30/19 16:22 Dose: 40 mg Potassium Chloride/Dextrose (D5w 1/2 Ns Kcl 20 Meq 1000 Ml*) 1,000 mls @ 100 mls/hr IV PER RATE [facility] Last Admin: 04/29/19 18:55 Dose: 100 mls/hr Ketorolac Tromethamine (Toradol Inj*) 30 mg IV Q6H PRN PRN Reason: PAIN - MILD Last Admin: 04/29/19 14:33 Dose: 30 mg Methylprednisolone Sodium Succinate (Solu-Medrol 40 Mg) 20 mg IV Q8H [facility] Last Admin: 04/30/19 16:22 Dose: 20 mg Ondansetron HCl (Zofran Inj*) 4 mg IV Q4H PRN PRN Reason: NAUSEA/VOMITING Last Admin: 04/29/19 14:21 Dose: 4 mg Pantoprazole Sodium (Protonix Iv*) 40 mg IV DAILY [facility] Last Admin: 04/30/19 08:02 Dose: 40 mg Phenol/Menthol (Chloroseptic Throat [place]*) 1 spray MT TID PRN PRN Reason: SORE THROAT Last Admin: 04/28/19 18:09 Dose: 1 spray Vital Signs - 8 hr 04/30/19 04/30/19 10:00 14:00 Temperature 97.9 F 97.3 F Pulse Rate 47 53 Respiratory 18 18 Rate Blood Pressure 123/68 132/66 (mmHg) O2 Sat by Pulse 99 99 Oximetry Oxygen Devices in Use Now: None Appearance: Middle age white female, WDWN, appears younger than stated age, laying upright in bed appearing in NAD Eyes: No Scleral Icterus, - - PERRL Ears/Nose/Mouth/Throat: Mucous Membranes Moist Neck: Trachea Midline Respiratory: Symmetrical Chest Expansion and Respiratory Effort, Clear to Auscultation Cardiovascular: NL Sounds; No Murmurs; No JVD, RRR Abdominal: NL Sounds; No Tenderness; No Distention Extremities: No Edema, No Clubbing, Cyanosis Skin: No Rash or Ulcers Neurological: Alert and Oriented x 3, NL Muscle Strength and Tone Result Diagrams: 04/28/19 05:34 04/30/19 09:37 Microbiology and Other Data: Microbiology 04/29/19 08:10 Stool Gross Appearance - Final Stool C. difficile DNA Amplification - Final 027 Presumptive NEGATIVE Toxigenic C.diff NEGATIVE 04/29/19 08:10 Stool Gross Appearance - Final Stool Stool Lactoferrin - Final 04/27/19 21:15 Urine Culture - Final Urine Assess/Plan/Problems-Billing Assessment: This is a 49 year old female with a past medical history of mild crohn's admitted 04/27/19 for small bowel obstruction due to intestinal inflammation, likely crohn's flair. - Patient Problems (1) Small bowel obstruction Current Visit: Yes Status: Acute Code(s): K56.609 - UNSP INTESTNL OBST, UNSP TO PARTIAL VERSUS COMPLETE OBST SNOMED Code(s): 983811155 Comment: -likely 2/2 inflammatory changes related to crohns -GI involved and appreciate input -NG tube removed yesterday and nausea is resolved -tolerated clear liquids, advancing to full liquid diet -Continue methylprednisolone and protonix -SBO is resolving as patient had small BM and much flatus today (2) Electrolyte abnormality Current Visit: Yes Status: Acute Code(s): E87.8 - OTH DISORDERS OF ELECTROLYTE AND FLUID BALANCE, NEC SNOMED Code(s): 428845336 Comment: -hypokalemia and hypomagnesiumemia are resolved -likely 2/2 vomiting (3) Bradycardia Current Visit: Yes Status: Acute Code(s): R00.1 - BRADYCARDIA, UNSPECIFIED SNOMED Code(s): 96622451 Comment: -likely because patient is young and exercises -asymptomatic -will order EKG to r/o arrhythmia (4) Tobacco use Current Visit: Yes Status: Acute Code(s): Z72.0 - TOBACCO USE SNOMED Code( s): 175688210 Comment: -discussed smoking cessation, is interested in quitting -nicotine patch ordered if desired by patient (5) Full code status Current Visit: Yes Status: Acute Code(s): Z78.9 - OTHER SPECIFIED HEALTH STATUS SNOMED Code(s): 309628353 (6) DVT prophylaxis Current Visit: Yes Status: Acute Code(s): Z29.9 - ENCOUNTER FOR PROPHYLACTIC MEASURES, UNSPECIFIED SNOMED Code(s): 526340280 Comment: -Lovenox Status and Disposition: anticipate d/c home when medically stable
[2019-04-30] MEDS ORDERED: diPHENhydraMINE PO* 50 MG PO PRN (17:59)
[2019-04-30] MEDS ORDERED: Acetaminophen TAB* 325 MG PO PRN (18:00)
[2019-04-30] MEDS ORDERED: Ondansetron ODT TAB* 4 MG PO PRN (18:00)
[2019-05-01] MEDS: methylPREDNISolone SOD 40 MG* 1 ML VIAL IV SCH (07:46)
[2019-05-01] MEDS: Pantoprazole IV* 40 MG IV SCH (07:46)
[2019-05-01] MEDS ORDERED: Nicotine PATCH 21 MG/24 HR* PATCH TRANSDERM SCH (08:00)
[2019-05-01 11:25] VITALS: BP 137/78
[2019-05-01] MEDS ORDERED: Nicotine Patch Removal NOTE PATCH OFF SCH (21:00)
--- NOTE | 2019-05-01 21:41 | DS ---
CC: Dr. Julissa Gonzalez; Dr. Ng * DISCHARGE SUMMARY: DATE OF ADMISSION: 04/27/19 DATE OF DISCHARGE: 05/01/19 ATTENDING PHYSICIAN WHILE IN THE HOSPITAL: Tammy Knowles MD * (dictated by DANIEL Vega). PRIMARY CARE PROVIDER: Dr. Julissa Gonzalez. OUTPATIENT PROBATION WORKER: Dr. Ng. PRIMARY DIAGNOSIS: Small bowel obstruction, likely secondary to inflammatory changes in the setting of a likely Crohn's flare. SECONDARY DIAGNOSIS: Mild Crohn's disease. STUDIES WHILE IN THE HOSPITAL: CT abdomen and pelvis on 04/27/19, impression: Small bowel obstruction with bowel loops measuring 4 x 4 cm transversely. There is mucosal thickening and enhancement of the distal small bowel. The differential includes inflammatory bowel disease. There is a small amount of ascites. There is no appreciable free intraperitoneal gas. HISTORY OF PRESENT ILLNESS/HOSPITAL COURSE: Amelia Mccoy is a 49-year-old white female with past medical history significant for mild Crohn's disease, who presented to the emergency department on 04/27/19 after a 4-day history of nausea, vomiting, and diarrhea. The patient was admitted to the hospital. She was afebrile without leukocytosis. Please see admitting history and physical written by Altagracia Freitas NP for further information. Given the CT abdomen and pelvis as described above, the patient was admitted n.p.o. with an NG tube. Gastroenterology was consulted and Dr. Latham was the initial consulting physician who agreed with management as above. He ordered QuantiFERON and hepatitis serology while she was in the hospital in case biologic was needed in the future as step-up therapy for her Crohn's disease, which were negative. Additionally, the patient's stool ova and parasites were negative and C. diff was negative as well. The patient was given IV hydration and her electrolytes were repleted. The patient began passing gas and was no longer symptomatic of nausea and NG tube was then removed. She was on just sips of clear liquids and was tolerating this well and ultimately her diet was advanced to a regular diet and she was asymptomatic by day of discharge. By day of discharge, the patient is passing much flatus and has had small bowel movements and is no longer feeling nauseous, vomiting and denies abdominal pain, fever or chills. The case was discussed with Dr. Ng on the day of discharge who agreed with discharge. He recommended the prednisone taper as detailed below. PHYSICAL EXAM ON THE DAY OF DISCHARGE: General: Overweight white female, well developed, well nourished, lying upright in hospital bed, appearing comfortable , in no acute distress. Eyes: PERRL. Sclerae anicteric. ENT: Mucous membranes moist. Neck: Supple. Lungs: Clear to auscultation throughout. Cardio: Regular rate and rhythm without murmurs, rubs, or gallops. Abdomen: Normoactive bowel sounds x4 quadrants. Abdomen is soft, nontender, nondistended. No hepatosplenomegaly appreciated. Extremities: No clubbing, cyanosis, or edema. No calf tenderness. Neuro: The patient is alert and oriented x3. No focal deficits. Normal gait. Able to move all extremities. Psych: The patient is pleasant and cooperative. DISCHARGE PLAN: Diet: Low-residue diet recommended and instructions provided. Activity: The patient may return to normal activity as tolerated. The patient was provided with a work excuse for her time during her hospital stay and an additional day. She is to follow up with Dr. Ng as outpatient. She is to continue the steroid taper as discussed above, and if she is having issues with this, to discuss this with Dr. Ng at the time of evaluation. The patient should follow up with Dr. Ng regarding when to restart her budesonide after the end of the prednisone taper. Smoking cessation was discussed during her hospital stay, and she is encouraged to quit smoking. She is advised to return to the hospital if she is experiencing bloody diarrhea , severe abdominal pain, nausea or vomiting to the point of not being able keep down liquids, fevers or chills. DISCHARGE MEDICATIONS: New medications: 1. Prednisone 40 mg x5 days, 35 mg x5 days, 30 mg x5 days, 25 mg x5 days, 20 mg x5 days, 15 mg x5 days, 10 mg x5 days, 5 mg x5 days, then discontinue. 2. Simethicone 125 mg p.o. daily. 3. Nicotine patch 14 mg for 24 hours 1 transdermal patch daily. 4. Tylenol 650 mg p.o. q.6 hours p.r.n. pain. Discontinued home medications: Budesonide 3 mg p.o. t.i.d. CONDITION ON DISCHARGE: Stable. DISPOSITION: Home. TIME SPENT: Approximately 40 minutes was spent on this discharge, approximately half of this time was spent at bedside evaluating the patient and discussing the plan of care. DANIEL VEGA [id number]/[facility] #: [id number] [place]
== END 2019-05-01 16:00 | disposition home or self-care (01) | DRG 245 ==
LOC: ED 11:53 → MED 16:17 → OBSVTOIN 04-28 11:00
PROVIDERS: ADMIT Internal Medicine; ATTEND Internal Medicine
DX: K50.012 Crohn's disease of small intestine with intestinal obstruction (principal); R18.8 Other ascites; E66.9 Obesity, unspecified; F17.210 Nicotine dependence, cigarettes, uncomplicated; E83.42 Hypomagnesemia; E87.6 Hypokalemia; R00.1 Bradycardia, unspecified; R31.29 Other microscopic hematuria; Z68.32 Body mass index [BMI] 32.0-32.9, adult; Z79.899 Other long term (current) drug therapy; Z88.8 Allergy status to other drugs, medicaments and biological substances; Z83.3 Family history of diabetes mellitus
CPT/HCPCS: 36415; 74177; 80048; 80053; 81003; 81015; 83605; 83630; 83690; 83735; 84702; 85025; 85610; 85652; 86140; 86141; 86481; 86704; 86706; 87045; 87046; 87086; 87177; 87209; 87328; 87329; 87340; 87493; 87899; 90686; 93005; 96374; 96375; 96376; 99284; A9270-GY; G0378; J1200; J1650; J1885; J2270; J2405; J2920; J3475; J3480; Q9967

== ENCOUNTER 2019-06-24 15:06 | Emergency (ER) | payer BC ==
--- OUTSIDE RECORDS SUMMARY | 2019-06-24 15:27 | XMS REPORT | Continuity of Care Document ---
:1970 External Reference #:[id number] Author Name Theron Ng MD Address [address] [place] [id number] Care Team Providers Name Role Phone Julissa Gonzalez MD Care Team Information Voice Network Administrator [phone] Problems Active Problems Provider Date Crohn's disease of small intestine Theron Ng MD Onset: 05/27/2017 Crohn's disease Theron Ng MD Onset: 07/06/2012 Social History Type Date Description Comments Sex Female Tobacco Use Start: Unknown End: Unknown Patient is a former smoker Smoking Status Reviewed: 05/09/19 Patient is a former smoker Allergies, Adverse Reactions, Alerts Description No Known Drug Allergies Medications Active Medications SIG Qnty Indications Ordering Provider Date Budesonide take 3 capsules 90caps Theron Ng, 06/15/[address] daily by mouth Part Prednisone Every Day 90tabs Unknown 05/01/2019 10mg Tablets Acyclovir Take One Tablet Unknown 400mg Tablets By Mouth Every Day History Medications Budesonide Three Times Daily Unknown 05/01/2019 - 05/01/[address] Part Nicotine Transdermal Every Day 30units Unknown 04/29/2019 - 05/09/2019 System Step 2 14mg/24HR Patches 24HR Simethicone Every Day Unknown 04/27/2019 - 05/09/2019 125mg Capsules Immunizations CPT Code Status Date Vaccine Lot # [id number] Given 04/29/2019 Influenza Virus Vaccine, Quadrivalent, Split, Preservative Free Vital Signs Date Vital Result Comment 05/09/2019 2:05pm Height 66 inches 5'6" Weight 200.00 lb BP Systolic 126 mmHg BP Diastolic 75 mmHg Heart Rate 61 /min BMI (Body Mass Index) 32.3 kg/m2 05/27/2017 2:52pm Height 66 inches 5'6" Weight 194.00 lb BP Systolic 98 mmHg BP Diastolic 72 mmHg Heart Rate 72 /min BMI (Body Mass Index) 31.3 kg/m2 Results Test Acquired Facility Test Result H/L Range Note Date Serum or plasma 04/30/2019 N2N/CCD Import Serum or plasma 138 mmol/L 135 -145 sodium sodium measurement measurement (moles/volume) (moles/volume) Serum or plasma 04/30/2019 N2N/CCD Import Serum or plasma 4.1 mmol/L 3.5 -5.0 potassium potassium measurement measurement (moles/volum (moles/volume) Serum or plasma 04/30/2019 N2N/CCD Import Serum or plasma 106 mmol/L 101 -111 chloride chloride measurement measurement (moles/volume (moles/volume) Serum or plasma 04/30/2019 N2N/CCD Import Serum or plasma 26 mmol/L 22- 32 carbon dioxide, carbon dioxide, total measurement total measurement (moles/volume) Serum or plasma 04/30/2019 N2N/CCD Import Serum or plasma 6 mmol/L 2-11 anion gap anion gap Serum glucose 04/30/2019 N2N/CCD Import Serum glucose 115 mg/dL 70-100 measurement measurement (mass/volume) (mass/volume) Serum or plasma 04/30/2019 N2N/CCD Import Serum or plasma 12 mg/dL 6-24 urea nitrogen urea nitrogen measurement measurement (mass/vo (mass/volume) Serum or plasma 04/30/2019 N2N/CCD Import Serum or plasma 0.65 mg/dL 0.51-0.95 creatinine creatinine measurement measurement (mass/volum (mass/volume) Serum or plasma 04/30/2019 N2N/CCD Import Serum or plasma 18.5 8-20 urea urea nitrogen/creatini nitrogen/creatin ne ratio ine ratio Serum or plasma 04/30/2019 N2N/CCD Import Serum or plasma 8.9 mg/dL 8.6- 10.3 calcium calcium measurement measurement (mass/volume) (mass/volume) Serum or plasma 04/30/2019 N2N/CCD Import Serum or plasma 1.9 mg/dL 1.9- 2.7 magnesium magnesium measurement measurement (mass/volume (mass/volume) Estimated 04/30/2019 N2N/CCD Import Estimated 96.1 glomerular glomerular filtration rate filtration rate (GFR) non-Afr (GFR) non- Lab Results 04/30/2019 N2N/CCD Import Estimated GFR 116.3 () Stool examination 04/29/2019 N2N/CCD Import Stool See comment for parasites examination for parasites Lab Results 04/29/2019 N2N/CCD Import Cryptosporidium/ Neg Giardia Cryptospori dium/Giardi a Serum or plasma C 04/28/2019 N2N/CCD Import Serum or plasma 79.49 mg/L < 1.99 reactive protein C reactive measurement by protein measurement by high sensitivity method (mass/volum Erythrocyte 04/28/2019 N2N/CCD Import Erythrocyte 34 mm/Hr 0-29 sedimentation sedimentation rate by rate by Westergren metho Westergren method Automated blood 04/28/2019 N2N/CCD Import Automated blood 0.0 nucleated nucleated erythrocytes erythrocytes detection detection Automated blood 04/28/2019 N2N/CCD Import Automated blood 0.1 % basophils/100 basophils/100 leukocytes leukocytes Automated blood 04/28/2019 N2N/CCD Import Automated blood 0.1 % eosinophils/100 eosinophils/100 leukocytes leukocytes Automated blood 04/28/2019 N2N/CCD Import Automated blood 1.5 % monocytes/100 monocytes/100 leukocytes leukocytes Automated blood 04/28/2019 N2N/CCD Import Automated blood 9.8 % lymphocytes/100 lymphocytes/100 leukocytes leukocytes Automated blood 04/28/2019 N2N/CCD Import Automated blood 88.5 % neutrophils/100 neutrophils/100 leukocytes leukocytes Blood nucleated 04/28/2019 N2N/CCD Import Blood nucleated 0.0 10^3/ul erythrocytes erythrocytes automated count automated count (numb (number/volume) Automated blood 04/28/2019 N2N/CCD Import Automated blood 0.0 10^3/ul 0- 0.2 basophil count basophil count (number/volume) (number/volume) Automated blood 04/28/2019 N2N/CCD Import Automated blood 0.0 10^3/ul 0- 0.6 eosinophil count eosinophil count (number/volume) (number/volume) Blood monocytes 04/28/2019 N2N/CCD Import Blood monocytes 0.1 10^3/ul 0- 0.8 automated count automated count (number/volume) (number/volume) Automated blood 04/28/2019 N2N/CCD Import Automated blood 6.0 10^3/uL 3.5-10.8 leukocytes count leukocytes count corrected for nuc corrected for nucleated erythrocytes (number/volume) Automated blood 04/28/2019 N2N/CCD Import Automated blood 4.46 3.70- 4.87 erythrocyte count erythrocyte 10^6/uL (number/volume) count (number/volume) Blood hemoglobin 04/28/2019 N2N/CCD Import Blood hemoglobin 13.8 g/dL 12.0-16.0 measurement measurement (mass/volume) (mass/volume) Automated blood 04/28/2019 N2N/CCD Import Automated blood 41 % 35-47 hematocrit hematocrit (percentage) (percentage) Automated 04/28/2019 N2N/CCD Import Automated 92 fL 80-97 erythrocyte mean erythrocyte mean corpuscular corpuscular volume volume Automated 04/28/2019 N2N/CCD Import Automated 31 pg 27-31 erythrocyte mean erythrocyte mean corpuscular corpuscular hemoglobin hemoglobin (mass per erythrocyte) Automated 04/28/2019 N2N/CCD Import Automated 34 g/dL 31-36 erythrocyte mean erythrocyte mean corpuscular corpuscular hemoglobin hemoglobin concentration measurement (mass/vol Automated 04/28/2019 N2N/CCD Import Automated 14 % 10-15 erythrocyte erythrocyte distribution distribution width ratio width ratio Automated blood 04/28/2019 N2N/CCD Import Automated blood 319 10^3/uL 150-450 platelet count platelet count (number/volume) (number/volume) Automated blood 04/28/2019 N2N/CCD Import Automated blood 8.0 fL 7.4- 10.4 platelet mean platelet mean volume volume measurement measurement Lymphocyte 04/28/2019 N2N/CCD Import Lymphocyte 5.3 10^3/ul 1.5-7.7 proliferation proliferation test test Blood lymphocytes 04/28/2019 N2N/CCD Import Blood 0.6 10^3/ul 1.0-4.8 automated count lymphocytes (number/volume) automated count (number/volume) Lab Results 04/27/2019 N2N/CCD Import TB Test (QFT) Negative Negative CT biopsy liver 04/27/2019 N2N/CCD Import CT biopsy liver 0.01 IU/mL CT biopsy liver 0.00 IU/mL CT biopsy liver 04/27/2019 N2N/CCD Import CT biopsy liver 0.00 IU/mL Blood Mycobacterium 04/27/2019 N2N/CCD Import Blood 10.11 tuberculosis Mycobacterium IU/mL tuberculin stimul tuberculosis tuberculin stimulated gamma interferon/mitogen stimu Whole blood 04/27/2019 N2N/CCD Import Whole blood 0.07 IU/mL measurement of measurement of Mycobacterium Mycobacterium tuberculo tuberculosis stimulated gamma interferon rel CBC Auto Diff 04/27/2019 [facility] White Blood Count 7.9 Normal 3.5-1 10^3/uL 0.8 Red Blood Count 4.67 10^6/uL Normal 3.70-4.87 Hemoglobin 14.4 g/dL Normal 12.0-16.0 Hematocrit 43 % Normal 35-47 Mean Corpuscular Volume 92 fL Normal 80-97 Mean Corpuscular Hemoglobin 31 pg Normal 27-31 Mean Corpuscular HGB Conc 33 g/dL Normal 31-36 Red Cell Distribution Width 14 % Normal 10-15 Platelet Count 289 10^3/uL Normal 150-450 Mean Platelet Volume 7.7 fL Normal 7.4-10.4 Abs Neutrophils 6.1 10^3/uL Normal 1.5-7.7 Abs Lymphocytes 1.1 10^3/uL Normal 1.0-4.8 Abs Monocytes 0.5 10^3/uL Normal 0-0.8 Abs Eosinophils 0.1 10^3/uL Normal 0-0.6 Abs Basophils 0.1 10^3/uL Normal 0-0.2 Abs Nucleated RBC 0.0 10^3/uL Granulocyte % 77.2 % Lymphocyte % 14.5 % Monocyte % 5.8 % Eosinophil % 1.6 % Basophil % 0.9 % Nucleated Red Blood Cells % 0.1 Inr/Protime 04/27/2019 [facility] Inr 1.04 Normal 0.82-1.09 1 Comp Metabolic Panel 04/27/2019 [facility] Sodium 135 mmol/L Normal 135-145 Potassium 3.4 mmol/L Low 3.5-5.0 Chloride 103 mmol/L Normal 101-111 Co2 Carbon Dioxide 23 mmol/L Normal 22-32 Anion Gap 9 mmol/L Normal 2-11 Glucose 109 mg/dL High 70-100 Blood Urea Nitrogen 11 mg/dL Normal 6-24 Creatinine 0.73 mg/dL Normal 0.51-0.95 BUN/Creatinine Ratio 15.1 Normal 8-20 Calcium 9.2 mg/dL Normal 8.6-10.3 Total Protein 7.2 g/dL Normal 6.4-8.9 Albumin 4.0 g/dL Normal 3.2-5.2 Globulin 3.2 g/dL Normal 2-4 Albumin/Globulin Ratio 1.3 Normal 1-3 Total Bilirubin 0.80 mg/dL Normal 0.2-1.0 Alkaline Phosphatase 64 U/L Normal 34-104 Alt 12 U/L Normal 7-52 Ast 11 U/L Low 13-39 Egfr Non- 84.0 >60 Egfr 101.7 >60 2 Laboratory test finding 04/27/2019 [facility] Magnesium 1.7 mg/dL Low 1.9-2.7 Lipase < 10 U/L Low 11.0-82.0 C Reactive Protein 81.42 mg/L High <8.01 HCG 0.86 mIU/mL 3 Lactic Acid 0.7 mmol/L Normal 0.5-2.0 4 Whole blood 04/27/2019 N2N/CCD Import Whole blood 1.04 0.82-1.09 international international normalized ratio normalized ratio (Inr) (Inr) Serum or plasma 04/27/2019 N2N/CCD Import Serum or plasma 4.0 g/dL 3.2- 5.2 albumin albumin measurement by measurement by bromocresol bromocresol green (BCG) dye binding method (ma Serum or plasma 04/27/2019 N2N/CCD Import Serum or plasma 1.3 1-3 albumin/globulin albumin/globulin mass ratio mass ratio Serum or plasma 04/27/2019 N2N/CCD Import Serum or plasma < 10 U/L 11.0- 82.0 lipase measurement lipase (enzymatic acti measurement (enzymatic activity/volume) Serum human 04/27/2019 N2N/CCD Import Serum human 0.86 mIU/mL chorionic chorionic gonadotropin gonadotropin detection for p detection for Urine epithelial 04/27/2019 N2N/CCD Import Urine epithelial Present Absent cells detection cells detection Urine bacteria 04/27/2019 N2N/CCD Import Urine bacteria Absent Absent detection by detection by automated method automated method Urine erythrocytes 04/27/2019 N2N/CCD Import Urine 1+(3-5/hpf) Absent detection by erythrocytes automated method detection by automated method Urine leukocytes 04/27/2019 N2N/CCD Import Urine leukocytes Trace(0-5/hp Absent detection by detection by f) automated method automated method Urine glucose 04/27/2019 N2N/CCD Import Urine glucose Negative Negative detection by detection by automated test automated test strip strip Urine total 04/27/2019 N2N/CCD Import Urine total Negative Negative bilirubin bilirubin detection by detection by automated test automated test strip Urine nitrite 04/27/2019 N2N/CCD Import Urine nitrite Negative Negative detection by detection by automated test automated test strip strip Urine hemoglobin 04/27/2019 N2N/CCD Import Urine hemoglobin 2+ Negative detection by test detection by test strip strip Urine leukocyte 04/27/2019 N2N/CCD Import Urine leukocyte Negative Negative esterase detection esterase by automated te detection by automated test strip Protein 04/27/2019 N2N/CCD Import Protein Negative Negative [Mass/volume] in [Mass/volume] in Urine by Automated Urine by test s Automated test strip Ketones 04/27/2019 N2N/CCD Import Ketones Trace Negative [Mass/volume] in [Mass/volume] in Urine by Automated Urine by test s Automated test strip Urine urobilinogen 04/27/2019 N2N/CCD Import Urine Negative Negative measurement urobilinogen (units/volume) by measurement t (units/volume) by test strip Lab Results 04/27/2019 N2N/CCD Import Urine pH 6.0 5-9 Specific gravity 04/27/2019 N2N/CCD Import Specific gravity 1.056 1.010- 1.030 of Urine by of Urine by Refractometry Refractometry automat automated Urine clarity by 04/27/2019 N2N/CCD Import Urine clarity by Clear refractometry refractometry automated automated Color of Urine by 04/27/2019 N2N/CCD Import Color of Urine by Yellow Auto Auto 1 Standard intensity warfarin therapeutic range: 2.0-3.0 High intensity warfarin therapeutic range: 2.5-3.5 2 Because ethnic data is not always readily available, this report includes an eGFR for both -Americans and non- Americans. The National Kidney Disease Education Program (NKDEP) does not endorse the use of the MDRD equation for patients that are not between the ages of 18 and 70, are , have extremes of body size, muscle mass, or nutritional status, or are non- or non-. According to the National Kidney Foundation, irrespective of diagnosis, the stage of the disease is based on the level of kidney function: Stage Description GFR(mL/min/1.73 m(2)) 1 Kidney damage with normal or decreased GFR 90 2 Kidney damage with mild decrease in GFR 60-89 3 Moderate decrease in GFR 30-59 4 Severe decrease in GFR 15-29 5 Kidney failure <15 (or dialysis) 3 <5.0 Negative 5.0 - 25.0 Indeterminate (Repeat testing recommended after 72 hours) >25.0 Positive Perimenopausal women can display HCG levels of up to 20 mIU/mL 4 [facility] Severe Sepsis and Septic Shock Management Bundle Measure requires all lactic acids initially measuring >2.0 mmol/L be repeated. Procedures Description No Information Available Medical Devices Description No Information Available Encounters Description No Information Available Assessments Date Code Description Provider 05/09/2019 K50.018 Crohn's disease of small intestine with other Theron Ng MD complication 04/29/2019 K50.90 Crohn's disease, unspecified, without Theron Ng MD complications 04/28/2019 K50.90 Crohn's disease, unspecified, without Theron Ng MD complications 04/27/2019 K50.90 Crohn's disease, unspecified, without Harvinder Latham, complications Plan of Treatment 05/09/2019 - Theron Ng MDK50.018 Crohn's disease of small intestine with other complicationComments:The patient is doing much better at this time. She is tapering her prednisone and we will return toher budesonide. She will call me if any further symptoms arise Functional Status Description No Information Available Mental Status Description No Information Available Referrals Description No Information Available
[2019-06-24 15:43] VITALS: BP 147/92
--- NOTE | 2019-06-24 16:29 | ED ---
Skin Complaint - HPI Summary HPI Summary: 49 yo WF c/o right periumbilical boil that became infected x few days, now TTP, erythematous, no drainage. - History of Current Complaint Chief Complaint: UCSkin Time Seen by Provider: 06/24/19 15:47 Stated Complaint: POSSIBLE BOIL ABDOMEN Hx Obtained From: Patient Hx Last Menstrual Period: 10/03/17 Onset/Duration: Started Days Ago, Still Present Skin Exposure Onset/Duration: Days Ago Timing: Lasting Days Onset Severity: Moderate Current Severity: Moderate Pain Intensity: 8 - Additional Pertinent History Primary Care Physician: PEPE - Allergy/Home Medications Allergies/Adverse Reactions: Allergies Allergy/AdvReac Type Severity Reaction Status Date / Time mesalamine Allergy Fever Verified 06/24/19 15:43 Home Medications: Home Medications Acyclovir [Zovirax] 400 mg PO DAILY 06/24/19 [History Confirmed 06/24/19] Budesonide CAP(NF) 6 mg PO DAILY 06/24/19 [History Confirmed 06/24/19] PMH/Surg Hx/FS Hx/Imm Hx Previously Healthy: Yes Endocrine/Hematology History: Denies: Hx Diabetes, Hx Systemic Lupus Erythematosus, Hx Thyroid Disease Cardiovascular History: Denies: Hx Congestive Heart Failure, Hx Hypertension Respiratory History: Denies: Hx Asthma, Hx Chronic Obstructive Pulmonary Disease (COPD) GI History: Denies: Hx Ulcer History: Denies: Hx Dialysis, Hx Renal Disease Musculoskeletal History: Denies: Hx Rheumatoid Arthritis Sensory History: Reports: Hx Contacts or Glasses Denies: Hx Hearing Aid Opthamlomology History: Reports: Hx Contacts or Glasses - Cancer History Hx Chemotherapy: No - Surgical History Surgery Procedure, Year, and Place: no abdomen surgery; tubal ligation 1999; Rt ankle with ORIF @ [facility] with Dr. Eli 14 yrs ago; Rt achilles tendon repair too; Infectious Disease History: No Infectious Disease History: Denies: Hx Hepatitis, Hx Human Immunodeficiency Virus (HIV), Traveled Outside the [place] in Last 30 Days - Family History Known Family History: Positive: Non-Contributory Negative: Respiratory Disease - no asthma - Social History Alcohol Use: Weekly Hx Substance Use: No Substance Use Type: Reports: None Hx Tobacco Use: Yes Smoking Status (MU): Former Smoker Type: Cigarettes Amount Used/How Often: 1/2-1 PPD Length of Time of Smoking/Using Tobacco: 20 yrs Have You Smoked in the Last Year: Yes Review of Systems Constitutional: Negative Eyes: Negative ENT: Negative Cardiovascular: Negative Respiratory: Negative Gastrointestinal: Negative Genitourinary: Negative Musculoskeletal: Negative Positive: Other - skin infection Neurological: Negative Psychological: Normal All Other Systems Reviewed And Are Negative: Yes Physical Exam - Summary Physical Exam Summary: Appearance: Positive: No Pain Distress Skin: Positive: Warm, 4x5 cm cellulitis right of umbilicus, TTP, hot, tender Head/Face: Positive: Normal Head/Face Inspection Eyes: :Normal ENT: Normal ENT inspection Neck: Positive: Supple Respiratory/Lung Sounds: Positive: Clear to Auscultation. Cardiovascular: Positive: Normal, RRR, S1, S2 Abdomen : soft, NT/ND Musculoskeletal: Positive: Normal, Strength/ROM Intact Neurological: Positive: CN 2-12 grossly intact Vital Signs On Initial Exam: Initial Vitals Temp Pulse Resp BP Pulse Ox 36.8 C 71 18 147/92 100 06/24/19 15:34 06/24/19 15:34 06/24/19 15:34 06/24/19 15:34 06/24/19 15:34 Diagnostics - Vital Signs Vital Signs Temp Pulse Resp BP Pulse Ox 06/24/19 15:34 36.8 C 71 18 147/92 100 - Laboratory Lab Statement: Any lab studies that have been ordered have been reviewed, and results considered in the medical decision making process. Course/Dx - Diagnoses Provider Diagnoses: Cellulitis of umbilicus Discharge ED - Sign-Out/Discharge Documenting (check all that apply): Patient Departure All imaging exams completed and their final reports reviewed: No Studies - Discharge Plan Condition: Stable Disposition: HOME Prescriptions: Cephalexin CAP* [Keflex CAP*] 500 mg PO TID 10 Days #30 cap Fluconazole 150 MG TAB* [Diflucan 150 MG TAB*] 150 mg PO DAILY 3 Days #3 tablet Sulfamethox/Trimethoprim DS* [Bactrim DS 800/160 TAB*] 1 tab PO BID 10 Days #20 tab Patient Education Materials: Cellulitis (ED) Referrals: Julissa Gonzalez MD [Primary Care Provider] - - Billing Disposition and Condition Condition: STABLE Disposition: Home
== END 2019-06-24 16:26 | disposition home or self-care (01) ==
LOC: UCCORT 15:06
DX: L03.316 Cellulitis of umbilicus (principal); Z87.891 Personal history of nicotine dependence; Z88.8 Allergy status to other drugs, medicaments and biological substances
CPT/HCPCS: 99212; G0463

== ENCOUNTER 2019-06-27 09:39 | Emergency (ER) | payer BC ==
[2019-06-27 10:17] VITALS: BP 134/72
--- NOTE | 2019-06-27 10:31 | UC ---
Skin Complaint HPI - HPI Summary HPI Summary: abscess right lower abdominal wall x 5 days the area is swollen , hard, very painful , + redness, pain is 9 out 10 , works by touching the area , better with Tylenol denies any fever, no chills pt. was seen at the urgent care few days ago , was placed on antibiotics no getting better - History of Current Complaint Chief Complaint: UCSkin Time Seen by Provider: 06/27/19 10:16 Stated Complaint: ABD. Hx Obtained From: Patient Hx Last Menstrual Period: 2 months ago ?: No Onset/Duration: Gradual Onset, Lasting Days - 5, Still Present Timing: Constant Onset Severity: Moderate Current Severity: Severe Pain Intensity: 9 Location: Discrete - right lower abdominal wall Character: Swelling, Pain, Redness Aggravating Factor(s): Touch Alleviating Factor(s): Nothing Associated Signs & Symptoms: Positive: Tenderness. Negative: Fever, Chills, Red Streaks - Allergy/Home Medications Allergies/Adverse Reactions: Allergies Allergy/AdvReac Type Severity Reaction Status Date / Time mesalamine Allergy Fever Verified 06/27/19 10:10 Home Medications: Home Medications Acetaminophen TAB* [Tylenol TAB*] 1,000 mg PO Q6H PRN 06/27/19 [History Confirmed 06/27/19] PMH/Surg Hx/FS Hx/Imm Hx - Additional Past Medical History Additional PMH: chrons disease - Surgical History Surgical History: Yes Surgery Procedure, Year, and Place: no abdomen surgery; tubal ligation 1999; Rt ankle with ORIF @ [facility] with Dr. Eli 14 yrs ago; Rt achilles tendon repair too; - Family History Known Family History: Positive: Non-Contributory Negative: Respiratory Disease - no asthma - Social History Alcohol Use: Weekly Substance Use Type: None Smoking Status (MU): Former Smoker Type: Cigarettes Amount Used/How Often: 1/2-1 PPD Length of Time of Smoking/Using Tobacco: 20 yrs Have You Smoked in the Last Year: Yes When Did the Patient Quit Smoking/Using Tobacco: 2 months ago Household Exposure Type: Cigarettes - Immunization History Most Recent Influenza Vaccination: 04/29/19 Most Recent Pneumonia Vaccination: unknown Review of Systems All Other Systems Reviewed And Are Negative: Yes Constitutional: Negative: Fever, Chills, Fatigue Eyes: Positive: Negative Is Patient Immunocompromised?: No Physical Exam Triage Information Reviewed: Yes Appearance: Well-Nourished, Pain Distress Vital Signs: Initial Vital Signs Temp 97.6 F 06/27/19 10:11 Pulse 71 06/27/19 10:11 Resp 16 06/27/19 10:11 BP 134/72 06/27/19 10:11 Pulse Ox 99 06/27/19 10:11 Vital Signs Reviewed: Yes Eye Exam: Normal Eyes: Positive: Conjunctiva Clear ENT: Positive: Normal ENT inspection, Hearing grossly normal, Pharynx normal Neck: Positive: Supple, Nontender, No Lymphadenopathy Respiratory: Positive: Chest non-tender, Lungs clear, Normal breath sounds Cardiovascular: Positive: RRR, No Murmur, Pulses Normal Skin: Positive: Other - abscess right lowe abdominal wall, 5 cm in diameter, firm , very tender to touch Course/Dx - Diagnoses Provider Diagnosis: Abscess of abdominal wall Discharge ED - Sign-Out/Discharge Documenting (check all that apply): Patient Departure All imaging exams completed and their final reports reviewed: No Studies - Discharge Plan Condition: Stable Disposition: HOME Prescriptions: HYDROcodone/ACETAMIN 5-325 MG* [[place] 5-325 TAB*] 1 tab PO Q8H PRN #15 tab MDD 3 tabs per day PRN Reason: Pain - Severe Patient Education Materials: Abscess (ED) Forms: *Work Release Referrals: No Primary Care Phys,NOPCP [Primary Care Provider] - 3 Days - Billing Disposition and Condition Condition: STABLE Disposition: Home
== END 2019-06-27 10:31 | disposition home or self-care (01) ==
LOC: UCCORT 09:39
DX: L02.211 Cutaneous abscess of abdominal wall (principal); K50.90 Crohn's disease, unspecified, without complications; Z88.8 Allergy status to other drugs, medicaments and biological substances; Z87.891 Personal history of nicotine dependence
CPT/HCPCS: 99212; G0463

== ENCOUNTER 2020-01-26 19:13 | Inpatient (IN) ==
[2020-01-26] MEDS ORDERED: Morphine 4 MG/ML VIAL (1 ml) IV ONE (20:08)
[2020-01-26] MEDS ORDERED: NS 0.9% 1000 ml BAG 1,000 ML IV ONE (20:08)
[2020-01-26 21:24] LABS: ABS Eosinophils 0.1 10^3/ul (0-0.6); ABS Lymphocytes 1.5 10^3/ul (1.0-4.8); ABS Monocytes 0.5 10^3/ul (0-0.8); ABS Neutrophils 3.4 10^3/ul (1.5-7.7); Eosinophil % 2.1 %; Hematocrit 42 % (35-47); Hemoglobin 14.4 g/dL (12.0-16.0); Lymphocyte % 26.8 %; Mean Corpuscular HGB Conc 35 g/dL (31-36); Mean Corpuscular Hemoglobin 30 pg (27-31); Mean Corpuscular Volume 87 fL (80-97); Mean Platelet Volume 7.9 fL (7.4-10.4); Platelet Count 315 10^3/uL (150-450); Red Blood Count 4.76 10^6 /uL (3.70-4.87); Red Cell Distribution Width 14 % (10-15); White Blood Count 5.4 10^3/uL (3.5-10.8)
[2020-01-26 21:41] LABS: Albumin 4.1 g/dL (3.2-5.2); Albumin/Globulin Ratio 1.4 (1-3); BUN/Creatinine Ratio 13.6 (8-20); C Reactive Protein 69.01 mg/L (<8.01); Calcium 9.6 mg/dL (8.6-10.3); EGFR African American 114.2 (>60); EGFR Non-African American 94.4 (>60); Potassium 3.2 mmol/L (3.5-5.0); Total Bilirubin 0.5 mg/dL (0.2-1.0); Total Protein 7.1 g/dL (6.4-8.9)
[2020-01-26] MEDS ORDERED: Iohexol 300 (CONTRAST) 10 ML SDV IV ONE (21:50)
[2020-01-27] MEDS ORDERED: Lactated Ringers 1000 ml BAG 1,000 ML IV ONE ×2 (01:05→13:06)
[2020-01-27] MEDS: KCL 10 MEQ/50 ML IVPREMIX 10 MEQ/50 ML BAG IV SCH ×2 (01:42→04:34)
[2020-01-27 01:58] LABS: Erythrocyte Sed Rate 13 mm/Hr (0-29)
[2020-01-27] MEDS ORDERED: methylPREDNISolone SOD 40 mg/ml 1 ml VIAL IV SCH ×2 (02:00→09:00)
[2020-01-27] MEDS: Morphine 2 MG/ML SYRINGE IV PRN ×5 (02:06→23:27)
[2020-01-27] MEDS ORDERED: Lorazepam PYXIS KEY PRN ×2 (04:22→15:01)
[2020-01-27] MEDS ORDERED: LORazepam 2 mg VIAL 1 ml IV PUSH ONE (04:22)
[2020-01-27] MEDS: Enoxaparin 40 MG/0.4 ML SYR SUBCUT SCH ×2 (04:34→23:04)
[2020-01-27 08:46] LABS: Urine Appearance Clear; Urine Bilirubin Negative (Negative); Urine Blood 2+ (Negative); Urine Color Yellow; Urine Glucose Negative (Negative); Urine Ketones 1+ (Negative); Urine Nitrite Negative (Negative); Urine Protein Negative (Negative); Urine Specific Gravity 1.035 (1.010-1.030); Urine Urobilinogen Negative (Negative)
[2020-01-27 09:26] LABS: Urine Bacteria Absent (Absent); Urine Red Blood Cell 1+(3-5/hpf) (Absent); Urine Squamous Epithelial Cell Present (Absent); Urine White Blood Cell Trace(0-5/hpf) (Absent)
[2020-01-27] MEDS: LORazepam 2 mg VIAL 1 ml IV PUSH PRN (23:04)
[2020-01-28] MEDS: Lactated Ringers 1000 ml BAG 1,000 ML IV SCH ×2 (02:25→15:18)
[2020-01-28] MEDS: Morphine 2 MG/ML SYRINGE IV PRN ×3 (05:43→23:44)
[2020-01-28 05:48] LABS: ABS Lymphocytes 1.1 10^3/ul (1.0-4.8); ABS Monocytes 0.4 10^3/ul (0-0.8); ABS Neutrophils 2.1 10^3/ul (1.5-7.7); Eosinophil % 0.9 %; Hematocrit 37 % (35-47); Hemoglobin 12.7 g/dL (12.0-16.0); Lymphocyte % 29.4 %; Mean Corpuscular HGB Conc 34 g/dL (31-36); Mean Corpuscular Hemoglobin 30 pg (27-31); Mean Corpuscular Volume 87 fL (80-97); Mean Platelet Volume 7.8 fL (7.4-10.4); Platelet Count 286 10^3/uL (150-450); Red Blood Count 4.26 10^6 /uL (3.70-4.87); Red Cell Distribution Width 14 % (10-15); White Blood Count 3.6 10^3/uL (3.5-10.8)
[2020-01-28 06:08] LABS: BUN/Creatinine Ratio 21.7 (8-20); EGFR African American 127.5 (>60); EGFR Non-African American 105.4 (>60)
[2020-01-28] MEDS: methylPREDNISolone SOD 40 mg/ml 1 ml VIAL IV SCH ×2 (09:19→21:12)
[2020-01-28] MEDS: KCL 20 MEQ/100 ML IVPREMIX 20 MEQ/100 ML BAG IV SCH ×3 (09:21→16:40)
[2020-01-28 10:19] LABS: C Reactive Protein 39.01 mg/L (<8.01)
[2020-01-28] MEDS: LORazepam 2 mg VIAL 1 ml IV PUSH PRN (23:39)
[2020-01-28] MEDS: Enoxaparin 40 MG/0.4 ML SYR SUBCUT SCH (23:46)
[2020-01-29] MEDS: Lactated Ringers 1000 ml BAG 1,000 ML IV SCH ×2 (06:06→18:32)
[2020-01-29 06:14] LABS: C Reactive Protein 35.38 mg/L (<8.01); Calcium 9.6 mg/dL (8.6-10.3); EGFR Non-African American 107.5 (>60)
[2020-01-29] MEDS: Morphine 2 MG/ML SYRINGE IV PRN ×2 (08:00→18:04)
[2020-01-29] MEDS: methylPREDNISolone SOD 40 mg/ml 1 ml VIAL IV SCH ×2 (08:00→21:00)
[2020-01-29] MEDS: Phenol 1.4% Throat Spray 177 ml BTL MT PRN (18:11)
[2020-01-29] MEDS: LORazepam 2 mg VIAL 1 ml IV PUSH PRN (23:22)
[2020-01-29] MEDS: Enoxaparin 40 MG/0.4 ML SYR SUBCUT SCH (23:25)
[2020-01-30] MEDS: Lactated Ringers 1000 ml BAG 1,000 ML IV SCH (08:00)
[2020-01-30] MEDS: methylPREDNISolone SOD 40 mg/ml 1 ml VIAL IV SCH ×2 (08:01→20:19)
[2020-01-30] MEDS: Enoxaparin 40 MG/0.4 ML SYR SUBCUT SCH (22:17)
[2020-01-31] MEDS: Phenol 1.4% Throat Spray 177 ml BTL MT PRN (09:27)
[2020-01-31 11:04] VITALS: BP 141/78
[2020-02-01 20:22] LABS: Calprotectin 661 mcg/g
== END 2020-01-31 14:12 | disposition home or self-care (01) | DRG 245 ==
LOC: ED 19:13 → SSU 01-27 01:00
PROVIDERS: ADMIT Internal Medicine; ATTEND Internal Medicine

== ENCOUNTER 2021-01-20 17:33 | Inpatient (IN) ==
[2021-01-20] MEDS ORDERED: fentaNYL 100 mcg/2 ml 50 MCG/ML VIAL IV ONE ×3 (20:40→23:05)
[2021-01-20] MEDS ORDERED: Iohexol 300 (CONTRAST) 10 ML SDV IV ONE (20:54)
[2021-01-20 21:45] LABS: ABS Lymphocytes 1.1 10^3/ul (1.0-4.8); ABS Monocytes 0.4 10^3/ul (0-0.8); ABS Neutrophils 9.1 10^3/ul (1.5-7.7); Hematocrit 38 % (35-47); Hemoglobin 12.9 g/dL (12.0-16.0); Lymphocyte % 10.5 %; Mean Corpuscular HGB Conc 34 g/dL (31-36); Mean Corpuscular Hemoglobin 30 pg (27-31); Mean Corpuscular Volume 90 fL (80-97); Mean Platelet Volume 8.2 fL (7.4-10.4); Platelet Count 237 10^3/uL (150-450); Red Blood Count 4.27 10^6 /uL (3.70-4.87); Red Cell Distribution Width 14 % (10-15); White Blood Count 10.8 10^3/uL (3.5-10.8)
[2021-01-20 22:04] LABS: Albumin 3.9 g/dL (3.2-5.2); Albumin/Globulin Ratio 1.1 (1-3); C Reactive Protein 386.45 mg/L (<8.01); Calcium 8.9 mg/dL (8.6-10.3); EGFR African American 69.6 (>60); EGFR Non-African American 57.6 (>60); Globulin 3.6 g/dL (2-4); Potassium 3.5 mmol/L (3.5-5.0); Total Bilirubin 1.1 mg/dL (0.2-1.0); Total Protein 7.5 g/dL (6.4-8.9)
[2021-01-21] MEDS ORDERED: Piperacillin/Tazobac ADVAN 3.375 GM in NS 0.9% 100 ml BAG 100 ML IV ONE (00:22)
[2021-01-21] MEDS ORDERED: Acetaminophen IV 1 GM/100ML 100 ML IV PRN (00:23)
[2021-01-21] MEDS: NS 0.9% 1000 ml BAG 1,000 ML IV SCH ×2 (00:45→17:39)
[2021-01-21] MEDS: Enoxaparin 40 MG/0.4 ML SYR SUBCUT SCH ×2 (00:45→21:46)
[2021-01-21] MEDS ORDERED: methylPREDNISolone 125 mg 2 ML VIAL IV SCH (01:00)
[2021-01-21] MEDS ORDERED: Zosyn per Pharmacy NOTE FOLLOW UP SCH (01:00)
[2021-01-21] MEDS: Ondansetron 4 mg VIAL 2 MG/ML 2 ml VIAL IV PRN (01:45)
[2021-01-21] MEDS: Morphine 2 MG/ML SYRINGE IV PRN ×7 (01:45→21:46)
[2021-01-21] MEDS: KCL 10 MEQ/50 ML IVPREMIX 10 MEQ/50 ML BAG IV SCH ×4 (03:25→07:51)
[2021-01-21 05:16] LABS: ABS Lymphocytes 0.5 10^3/ul (1.0-4.8); ABS Monocytes 0.3 10^3/ul (0-0.8); ABS Neutrophils 9.3 10^3/ul (1.5-7.7); Hematocrit 36 % (35-47); Hemoglobin 12.1 g/dL (12.0-16.0); Lymphocyte % 5.2 %; Mean Corpuscular HGB Conc 34 g/dL (31-36); Mean Corpuscular Hemoglobin 30 pg (27-31); Mean Corpuscular Volume 90 fL (80-97); Mean Platelet Volume 8.7 fL (7.4-10.4); Platelet Count 224 10^3/uL (150-450); Red Blood Count 3.98 10^6 /uL (3.70-4.87); Red Cell Distribution Width 14 % (10-15); White Blood Count 10.1 10^3/uL (3.5-10.8)
[2021-01-21 05:33] LABS: Albumin 3.6 g/dL (3.2-5.2); Albumin/Globulin Ratio 1.1 (1-3); C Reactive Protein 401.78 mg/L (<8.01); Calcium 8.6 mg/dL (8.6-10.3); Direct Bilirubin 0.3 mg/dL (0.03-0.18); EGFR African American 91.1 (>60); EGFR Non-African American 75.3 (>60); Globulin 3.3 g/dL (2-4); Indirect Bilirubin 0.9 mg/dL (0.3-1.0); Magnesium 2.2 mg/dL (1.9-2.7); Potassium 3.5 mmol/L (3.5-5.0); Total Bilirubin 1.2 mg/dL (0.2-1.0); Total Protein 6.9 g/dL (6.4-8.9)
[2021-01-21] MEDS: ZOSYN 3.375 GM Q8H per EXTENDED INFUSION IV SCH ×3 (07:52→21:47)
[2021-01-21] MEDS ORDERED: Morphine ORAL.SOLN 10 mg 2 mg/ml UDC 5 ml (10 mg) PO ONE (15:00)
[2021-01-22] MEDS: NS 0.9% 1000 ml BAG 1,000 ML IV SCH (02:03)
[2021-01-22] MEDS: Morphine 2 MG/ML SYRINGE IV PRN ×5 (02:05→22:50)
[2021-01-22] MEDS: ZOSYN 3.375 GM Q8H per EXTENDED INFUSION IV SCH ×3 (04:38→20:47)
[2021-01-22 05:47] LABS: Hematocrit 32 % (35-47); Hemoglobin 10.9 g/dL (12.0-16.0); Mean Corpuscular HGB Conc 34 g/dL (31-36); Mean Corpuscular Hemoglobin 30 pg (27-31); Mean Corpuscular Volume 91 fL (80-97); Mean Platelet Volume 8.4 fL (7.4-10.4); Platelet Count 245 10^3/uL (150-450); Red Blood Count 3.58 10^6 /uL (3.70-4.87); Red Cell Distribution Width 14 % (10-15)
[2021-01-22 06:18] LABS: Calcium 8.6 mg/dL (8.6-10.3); Magnesium 2.2 mg/dL (1.9-2.7); Potassium 3.5 mmol/L (3.5-5.0)
[2021-01-22 06:23] LABS: C Reactive Protein 307.62 mg/L (<8.01); EGFR African American 109.9 (>60); EGFR Non-African American 90.9 (>60); Phosphorus 2.5 mg/dL (2.5-5.0)
[2021-01-22] MEDS: CMCS: Budesonide 3 mg CAP (NF) PO SCH (11:33)
[2021-01-22] MEDS ORDERED: Potassium Chlor 20 meq TAB.ER PO ONE (14:38)
[2021-01-22] MEDS: Ondansetron 4 mg VIAL 2 MG/ML 2 ml VIAL IV PRN ×2 (14:48→20:47)
[2021-01-22] MEDS: Enoxaparin 40 MG/0.4 ML SYR SUBCUT SCH (20:43)
[2021-01-22] MEDS: Acetaminophen IV 1 GM/100ML 100 ML IV PRN (23:42)
[2021-01-23] MEDS: Morphine 2 MG/ML SYRINGE IV PRN ×10 (01:30→23:36)
[2021-01-23 05:03] LABS: Hematocrit 32 % (35-47); Hemoglobin 10.9 g/dL (12.0-16.0); Mean Corpuscular HGB Conc 34 g/dL (31-36); Mean Corpuscular Hemoglobin 31 pg (27-31); Mean Corpuscular Volume 90 fL (80-97); Mean Platelet Volume 7.8 fL (7.4-10.4); Platelet Count 253 10^3/uL (150-450); Red Blood Count 3.57 10^6 /uL (3.70-4.87); Red Cell Distribution Width 14 % (10-15); White Blood Count 6.1 10^3/uL (3.5-10.8)
[2021-01-23 05:20] LABS: Calcium 8.3 mg/dL (8.6-10.3); EGFR African American 104.6 (>60); EGFR Non-African American 86.4 (>60); Phosphorus 3.2 mg/dL (2.5-5.0); Potassium 3.6 mmol/L (3.5-5.0)
[2021-01-23] MEDS: ZOSYN 3.375 GM Q8H per EXTENDED INFUSION IV SCH ×3 (05:21→21:02)
[2021-01-23] MEDS: Ondansetron 4 mg VIAL 2 MG/ML 2 ml VIAL IV PRN ×3 (05:33→16:52)
[2021-01-23] MEDS: CMCS: Budesonide 3 mg CAP (NF) PO SCH ×2 (07:51→10:16)
[2021-01-23] MEDS ORDERED: NS 0.9% 1000 ml BAG 1,000 ML IV ONE (08:29)
[2021-01-23] MEDS: methylPREDNISolone SOD 40 mg/ml 1 ml VIAL IV SCH ×2 (15:46→22:48)
[2021-01-23] MEDS: Acetaminophen IV 1 GM/100ML 100 ML IV PRN (16:23)
[2021-01-23] MEDS ORDERED: Lorazepam PYXIS KEY PRN (19:43)
[2021-01-23] MEDS ORDERED: LORazepam 2 mg VIAL 1 ml IV PUSH ONE (19:45)
[2021-01-23] MEDS: NS 0.9% 1000 ml BAG 1,000 ML IV SCH (20:59)
[2021-01-24] MEDS: Morphine 2 MG/ML SYRINGE IV PRN ×3 (01:29→05:29)
[2021-01-24] MEDS: NS 0.9% 1000 ml BAG 1,000 ML IV SCH (04:15)
[2021-01-24] MEDS: ZOSYN 3.375 GM Q8H per EXTENDED INFUSION IV SCH ×3 (05:29→21:15)
[2021-01-24 05:41] LABS: ABS Lymphocytes 0.7 10^3/ul (1.0-4.8); ABS Monocytes 0.4 10^3/ul (0-0.8); ABS Neutrophils 4.9 10^3/ul (1.5-7.7); Hematocrit 33 % (35-47); Hemoglobin 11.2 g/dL (12.0-16.0); Lymphocyte % 12.2 %; Mean Corpuscular HGB Conc 34 g/dL (31-36); Mean Corpuscular Hemoglobin 30 pg (27-31); Mean Corpuscular Volume 89 fL (80-97); Mean Platelet Volume 7.6 fL (7.4-10.4); Platelet Count 293 10^3/uL (150-450); Red Blood Count 3.72 10^6 /uL (3.70-4.87); Red Cell Distribution Width 14 % (10-15); White Blood Count 6.1 10^3/uL (3.5-10.8)
[2021-01-24 05:53] LABS: Calcium 8.5 mg/dL (8.6-10.3); Magnesium 2.1 mg/dL (1.9-2.7); Potassium 3.9 mmol/L (3.5-5.0)
[2021-01-24 05:58] LABS: EGFR African American 143.5 (>60); EGFR Non-African American 118.6 (>60)
[2021-01-24] MEDS ORDERED: Buffered Lidocaine 1% SYRIN 1 ml INTRADERM ONE (07:28)
[2021-01-24] MEDS ORDERED: methylPREDNISolone 125 mg 2 ML VIAL ONE (07:28)
[2021-01-24] MEDS: methylPREDNISolone SOD 40 mg/ml 1 ml VIAL IV SCH ×2 (07:29→08:18)
[2021-01-24] MEDS ORDERED: Lidocaine 2% PF 5 ML VIAL ONE (08:06)
[2021-01-24] MEDS ORDERED: Succinylcholine 200 mg VIAL 20 mg/ml 10 ml VIAL (200 mg) ONE (08:06)
[2021-01-24] MEDS ORDERED: Propofol 10 MG/ML 20 ML BTL ONE (08:06)
[2021-01-24] MEDS ORDERED: fentaNYL 100 mcg/2 ml 50 MCG/ML VIAL ONE ×4 (08:06→14:58)
[2021-01-24] MEDS ORDERED: Sodium Citrate/Citric Acid LIQ 15 ML UDC PO ONE (08:17)
[2021-01-24] MEDS ORDERED: Sodium Citrate/Citric Acid LIQ 15 ML UDC ONE ×2 (08:24→08:30)
[2021-01-24] MEDS ORDERED: Bupivacaine 0.25% SDV 30 ML ONE (08:28)
[2021-01-24] MEDS ORDERED: Rocuronium 50 mg VIAL 10 mg/ml 5 ml VIAL (50 mg) ONE ×3 (09:11→13:57)
[2021-01-24] MEDS ORDERED: EPHEDrine (Pressors) 50 MG/ML VIAL ONE (09:18)
[2021-01-24] MEDS ORDERED: Prochlorperazine 5 mg/ml 2 ml VIAL (10 mg) IV PRN (09:39)
[2021-01-24] MEDS ORDERED: Naloxone 0.4 mg VIAL 0.4 mg/ml 1 ml VIAL IV PRN (09:39)
[2021-01-24] MEDS ORDERED: fentaNYL 100 mcg/2 ml 50 MCG/ML VIAL IV PRN (09:39)
[2021-01-24] MEDS ORDERED: Morphine 4 MG/ML VIAL (1 ml) IV PRN (09:39)
[2021-01-24] MEDS ORDERED: HYDROmorphone 1 MG/1 ML SYRINGE ONE ×2 (09:56→10:07)
[2021-01-24] MEDS ORDERED: Metoprolol Tartrate 5 mg VIAL 5 ml VIAL (1 mg/ml) ONE (10:08)
[2021-01-24] MEDS ORDERED: Phenylephrine 40 mcg/mL 10mL (400mcg) SYRINGE ONE (12:57)
[2021-01-24] MEDS ORDERED: Phenylephrine IV 10 MG/ML 1 ml VIAL ONE (13:03)
[2021-01-24] MEDS ORDERED: DiMENhydriNATE IV 50 mg/ml 1 ml VIAL ONE (14:01)
[2021-01-24] MEDS ORDERED: Ondansetron 4 mg VIAL 2 MG/ML 2 ml VIAL ONE (14:15)
[2021-01-24] MEDS ORDERED: Sugammadex 500 MG/5 ML 5 ml VIAL IV PUSH ONE (14:31)
[2021-01-24] MEDS ORDERED: Naloxone 0.4 mg VIAL 0.4 mg/ml 1 ml VIAL IV PUSH PRN (14:50)
[2021-01-24] MEDS ORDERED: HYDROmorphone PCA 20 MG/20 ML PCA.SYRING PCA SCH ×2 (15:00→23:02)
[2021-01-24] MEDS ORDERED: Prochlorperazine 5 mg/ml 2 ml VIAL (10 mg) ONE (15:30)
[2021-01-24] MEDS: Acetaminophen IV 1 GM/100ML 100 ML IV SCH (18:53)
[2021-01-24 20:27] LABS: Hematocrit 34 % (35-47); Hemoglobin 11.2 g/dL (12.0-16.0)
[2021-01-24] MEDS ORDERED: NS 0.9% 1000 ml BAG 1,000 ML IV ONE (20:46)
[2021-01-25 01:19] LABS: Urine Appearance Cloudy; Urine Bilirubin Negative (Negative); Urine Blood 3+ (Negative); Urine Color Yellow; Urine Glucose Negative (Negative); Urine Ketones Negative (Negative); Urine Nitrite Negative (Negative); Urine Protein Negative (Negative); Urine Specific Gravity 1.028 (1.002-1.030); Urine Urobilinogen Negative (Negative)
[2021-01-25] MEDS: NS 0.9% 1000 ml BAG 1,000 ML IV SCH ×2 (01:20→12:40)
[2021-01-25 01:44] LABS: Urine Bacteria Absent (Absent); Urine Red Blood Cell 3+(>10/hpf) (Absent); Urine Squamous Epithelial Cell Present (Absent); Urine White Blood Cell Trace(0-5/hpf) (Absent)
[2021-01-25] MEDS: methylPREDNISolone SOD 40 mg/ml 1 ml VIAL IV SCH (02:06)
[2021-01-25] MEDS: Acetaminophen IV 1 GM/100ML 100 ML IV SCH ×2 (02:19→09:44)
[2021-01-25 05:01] LABS: ABS Lymphocytes 0.7 10^3/ul (1.0-4.8); ABS Monocytes 0.6 10^3/ul (0-0.8); ABS Neutrophils 4.2 10^3/ul (1.5-7.7); Eosinophil % 0.7 %; Hematocrit 30 % (35-47); Hemoglobin 9.9 g/dL (12.0-16.0); Lymphocyte % 12.9 %; Mean Corpuscular HGB Conc 33 g/dL (31-36); Mean Corpuscular Hemoglobin 30 pg (27-31); Mean Corpuscular Volume 92 fL (80-97); Mean Platelet Volume 7.6 fL (7.4-10.4); Nucleated Red Blood Cells % 0.1; Platelet Count 320 10^3/uL (150-450); Red Cell Distribution Width 14 % (10-15); White Blood Count 5.6 10^3/uL (3.5-10.8)
[2021-01-25 05:18] LABS: Calcium 7.4 mg/dL (8.6-10.3); EGFR African American 102.9 (>60); EGFR Non-African American 85.1 (>60)
[2021-01-25] MEDS: ZOSYN 3.375 GM Q8H per EXTENDED INFUSION IV SCH ×2 (05:24→12:38)
[2021-01-25] MEDS ORDERED: Acetaminophen IV 1 GM/100ML 100 ML IV PRN (14:04)
[2021-01-25] MEDS: Enoxaparin 40 MG/0.4 ML SYR SUBCUT SCH (15:15)
[2021-01-25] MEDS: D5W 1/2 NS KCl 20 meq 1000 ml 1,000 ML IV SCH (22:50)
[2021-01-26 05:16] LABS: ABS Eosinophils 0.1 10^3/ul (0-0.6); ABS Monocytes 0.5 10^3/ul (0-0.8); ABS Neutrophils 5.3 10^3/ul (1.5-7.7); Eosinophil % 1.4 %; Hematocrit 28 % (35-47); Hemoglobin 9.1 g/dL (12.0-16.0); Lymphocyte % 14.7 %; Mean Corpuscular HGB Conc 33 g/dL (31-36); Mean Corpuscular Hemoglobin 30 pg (27-31); Mean Corpuscular Volume 91 fL (80-97); Mean Platelet Volume 7.3 fL (7.4-10.4); Platelet Count 351 10^3/uL (150-450); Red Blood Count 3.04 10^6 /uL (3.70-4.87); Red Cell Distribution Width 14 % (10-15); White Blood Count 6.9 10^3/uL (3.5-10.8)
[2021-01-26 05:40] LABS: Calcium 7.6 mg/dL (8.6-10.3); EGFR African American 181.7 (>60); EGFR Non-African American 150.2 (>60); Potassium 3.5 mmol/L (3.5-5.0)
[2021-01-26] MEDS: D5W 1/2 NS KCl 20 meq 1000 ml 1,000 ML IV SCH ×2 (08:47→19:06)
[2021-01-26] MEDS: Pantoprazole VIAL 40 MG VIAL IV SCH (12:55)
[2021-01-26] MEDS: Enoxaparin 40 MG/0.4 ML SYR SUBCUT SCH (15:43)
[2021-01-27] MEDS: D5W 1/2 NS KCl 20 meq 1000 ml 1,000 ML IV SCH ×2 (05:29→13:09)
[2021-01-27] MEDS: Pantoprazole VIAL 40 MG VIAL IV SCH (09:24)
[2021-01-27] MEDS: Enoxaparin 40 MG/0.4 ML SYR SUBCUT SCH (15:58)
[2021-01-27] MEDS ORDERED: Acetaminophen IV 1 GM/100ML 100 ML IV SCH (16:00)
[2021-01-27] MEDS: NS 0.9% IVPB SCH (17:17)
[2021-01-27] MEDS: ACYCLOVIR IVPB SCH (17:17)
[2021-01-27] MEDS: HYDROmorphone 0.5 MG/0.5 ML SYRINGE IV SLOW PU PRN (20:52)
[2021-01-28] MEDS: Acetaminophen IV 1 GM/100ML 100 ML IV SCH ×2 (00:27→09:16)
[2021-01-28] MEDS: D5W 1/2 NS KCl 20 meq 1000 ml 1,000 ML IV SCH (00:27)
[2021-01-28] MEDS: ACYCLOVIR IVPB SCH ×2 (00:51→09:53)
[2021-01-28] MEDS: NS 0.9% IVPB SCH ×2 (00:51→09:53)
[2021-01-28] MEDS: HYDROmorphone 0.5 MG/0.5 ML SYRINGE IV SLOW PU PRN (04:50)
[2021-01-28] MEDS: Pantoprazole VIAL 40 MG VIAL IV SCH (09:16)
[2021-01-28] MEDS ORDERED: HYDROmorphone 0.5 MG/0.5 ML SYRINGE IV SLOW PU PRN (13:01)
[2021-01-28] MEDS: Enoxaparin 40 MG/0.4 ML SYR SUBCUT SCH (13:39)
[2021-01-28] MEDS: Ondansetron 4 mg VIAL 2 MG/ML 2 ml VIAL IV PRN ×2 (18:25→23:37)
[2021-01-29 06:50] LABS: Hematocrit 27 % (35-47); Hemoglobin 9.4 g/dL (12.0-16.0); Mean Corpuscular HGB Conc 34 g/dL (31-36); Mean Corpuscular Hemoglobin 30 pg (27-31); Mean Corpuscular Volume 88 fL (80-97); Mean Platelet Volume 7.4 fL (7.4-10.4); Platelet Count 489 10^3/uL (150-450); Red Cell Distribution Width 14 % (10-15)
[2021-01-29 07:14] LABS: Calcium 7.7 mg/dL (8.6-10.3); EGFR African American 156.8 (>60); EGFR Non-African American 129.6 (>60)
[2021-01-29 07:31] LABS: ABS Eosinophils 0.2 10^3/ul (0-0.6); ABS Monocytes 0.4 10^3/ul (0-0.8); ABS Neutrophils 7.4 10^3/ul (1.5-7.7); Eosinophil % 1.8 %; Lymphocyte % 10.7 %
[2021-01-29] MEDS: Pantoprazole VIAL 40 MG VIAL IV SCH (08:43)
[2021-01-29] MEDS: Ondansetron 4 mg VIAL 2 MG/ML 2 ml VIAL IV PRN ×4 (08:43→22:29)
[2021-01-29] MEDS ORDERED: Potassium Chlor 20 meq TAB.ER PO ONE ×2 (09:54→14:00)
[2021-01-29] MEDS: Enoxaparin 40 MG/0.4 ML SYR SUBCUT SCH (14:15)
[2021-01-30 06:42] LABS: Hematocrit 26 % (35-47); Hemoglobin 8.8 g/dL (12.0-16.0); Mean Corpuscular HGB Conc 34 g/dL (31-36); Mean Corpuscular Hemoglobin 30 pg (27-31); Mean Corpuscular Volume 88 fL (80-97); Mean Platelet Volume 7.1 fL (7.4-10.4); Platelet Count 490 10^3/uL (150-450); Red Blood Count 2.95 10^6 /uL (3.70-4.87); Red Cell Distribution Width 14 % (10-15); White Blood Count 10.4 10^3/uL (3.5-10.8)
[2021-01-30 07:01] LABS: Calcium 7.6 mg/dL (8.6-10.3); EGFR African American 137.6 (>60); EGFR Non-African American 113.7 (>60); Potassium 3.3 mmol/L (3.5-5.0)
[2021-01-30] MEDS: Ondansetron 4 mg VIAL 2 MG/ML 2 ml VIAL IV PRN (07:30)
[2021-01-30 07:39] LABS: ABS Eosinophils 0.1 10^3/ul (0-0.6); ABS Lymphocytes 1.1 10^3/ul (1.0-4.8); ABS Monocytes 0.5 10^3/ul (0-0.8); ABS Neutrophils 8.6 10^3/ul (1.5-7.7); Eosinophil % 1.1 %; Lymphocyte % 10.9 %
[2021-01-30] MEDS: Pantoprazole VIAL 40 MG VIAL IV SCH (08:56)
[2021-01-30] MEDS: Enoxaparin 40 MG/0.4 ML SYR SUBCUT SCH (15:17)
[2021-01-30] MEDS: Potassium Chlor 20 meq TAB.ER PO SCH (20:47)
[2021-01-31] MEDS: Potassium Chlor 20 meq TAB.ER PO SCH (09:09)
[2021-01-31 09:20] LABS: Calcium 7.9 mg/dL (8.6-10.3); Potassium 3.6 mmol/L (3.5-5.0)
[2021-01-31 09:26] LABS: EGFR African American 168.4 (>60); EGFR Non-African American 139.2 (>60)
[2021-01-31 11:57] VITALS: BP 112/69
[2021-01-31] MEDS ORDERED: Lidocaine 1% MPF 2 ML VIAL ONE (12:29)
== END 2021-01-31 14:30 | disposition home or self-care (01) | DRG 221 ==
LOC: ED 17:33 → MEDTELE 23:23 → SSU 01-24 17:20 → MCHPEDS 01-30 19:44
PROVIDERS: ADMIT Internal Medicine; ATTEND Surgery Surgical Critical Care

== ENCOUNTER 2021-02-19 08:29 | Inpatient (IN) ==
[2021-02-19] MEDS ORDERED: Acetaminophen IV 1 GM/100ML 100 ML IV ONE (09:29)
[2021-02-19] MEDS ORDERED: Lactated Ringers 1000 ml BAG 1,000 ML IV ONE (09:29)
[2021-02-19] MEDS ORDERED: Morphine 4 MG/ML VIAL (1 ml) IV ONE ×2 (09:29→12:15)
[2021-02-19 10:11] LABS: ABS Basophils 0.1 10^3/ul (0-0.2); ABS Eosinophils 0.1 10^3/ul (0-0.6); ABS Lymphocytes 1.9 10^3/ul (1.0-4.8); ABS Monocytes 0.7 10^3/ul (0-0.8); ABS Neutrophils 9.5 10^3/ul (1.5-7.7); Eosinophil % 0.9 %; Hematocrit 28 % (35-47); Hemoglobin 9.4 g/dL (12.0-16.0); Lymphocyte % 15.1 %; Mean Corpuscular HGB Conc 34 g/dL (31-36); Mean Corpuscular Hemoglobin 28 pg (27-31); Mean Corpuscular Volume 84 fL (80-97); Mean Platelet Volume 7.3 fL (7.4-10.4); Platelet Count 514 10^3/uL (150-450); Red Blood Count 3.34 10^6 /uL (3.70-4.87); Red Cell Distribution Width 15 % (10-15); White Blood Count 12.3 10^3/uL (3.5-10.8)
[2021-02-19 10:39] LABS: EGFR Non-African American 116.1 (>60); Potassium 3.3 mmol/L (3.5-5.0)
[2021-02-19 10:40] LABS: Albumin 3.3 g/dL (3.2-5.2); Albumin/Globulin Ratio 0.7 (1-3); C Reactive Protein 336.81 mg/L (<8.01); Calcium 9.1 mg/dL (8.6-10.3); EGFR African American 140.4 (>60); Total Bilirubin 0.4 mg/dL (0.2-1.0); Total Protein 8.3 g/dL (6.4-8.9)
[2021-02-19] MEDS ORDERED: Iohexol 300 (CONTRAST) 10 ML SDV IV ONE (10:49)
[2021-02-19 11:02] LABS: Rapid COVID-19 Molecular Undetected (Undetected)
[2021-02-19] MEDS ORDERED: Piperacillin/Tazobac ADVAN 3.375 GM in NS 0.9% 100 ml BAG 100 ML IV ONE (11:39)
[2021-02-19] MEDS ORDERED: Ondansetron 4 mg VIAL 2 MG/ML 2 ml VIAL IV PRN (12:40)
[2021-02-19] MEDS ORDERED: D5W 1/2 NS KCl 20 meq 1000 ml 1,000 ML IV SCH (13:00)
[2021-02-19] MEDS ORDERED: NS 0.9% w/ 20 Meq KCL 1000 ml 1,000 ML IV SCH (14:00)
[2021-02-19] MEDS ORDERED: fentaNYL 100 mcg/2 ml 50 MCG/ML VIAL ONE (14:32)
[2021-02-19] MEDS: Piperacillin/Tazobactam VIAL 3.375 GM in NS 0.9% 100 ml BAG 100 ML IVPB SCH (17:05)
[2021-02-19] MEDS: KCL 10 MEQ/50 ML IVPREMIX 10 MEQ/50 ML BAG IV SCH ×3 (17:25→23:48)
[2021-02-20] MEDS: Piperacillin/Tazobactam VIAL 3.375 GM in NS 0.9% 100 ml BAG 100 ML IVPB SCH ×3 (01:52→16:11)
[2021-02-20 10:43] LABS: ABS Basophils 0.1 10^3/ul (0-0.2); ABS Eosinophils 0.2 10^3/ul (0-0.6); ABS Lymphocytes 1.5 10^3/ul (1.0-4.8); ABS Monocytes 0.5 10^3/ul (0-0.8); ABS Neutrophils 6.3 10^3/ul (1.5-7.7); Eosinophil % 2.2 %; Hematocrit 23 % (35-47); Hemoglobin 7.9 g/dL (12.0-16.0); Lymphocyte % 17.5 %; Mean Corpuscular HGB Conc 34 g/dL (31-36); Mean Corpuscular Hemoglobin 29 pg (27-31); Mean Corpuscular Volume 84 fL (80-97); Mean Platelet Volume 6.8 fL (7.4-10.4); Platelet Count 437 10^3/uL (150-450); Red Blood Count 2.77 10^6 /uL (3.70-4.87); Red Cell Distribution Width 15 % (10-15); White Blood Count 8.6 10^3/uL (3.5-10.8)
[2021-02-20 11:01] LABS: Calcium 8.7 mg/dL (8.6-10.3); EGFR African American 160.5 (>60); EGFR Non-African American 132.6 (>60); Magnesium 1.6 mg/dL (1.9-2.7); Phosphorus 3.3 mg/dL (2.5-5.0); Potassium 3.3 mmol/L (3.5-5.0)
[2021-02-20] MEDS ORDERED: Magnesium Sulfate 2 gm BAG 2 GM/50 ML BAG IVPB ONE (11:43)
[2021-02-20] MEDS ORDERED: Potassium Chlor 20 meq TAB.ER PO ONE (11:43)
[2021-02-20] MEDS: KCL 10 MEQ/50 ML IVPREMIX 10 MEQ/50 ML BAG IV SCH ×2 (13:51→16:03)
[2021-02-21] MEDS: Piperacillin/Tazobactam VIAL 3.375 GM in NS 0.9% 100 ml BAG 100 ML IVPB SCH ×4 (00:10→23:49)
[2021-02-21 06:12] LABS: Hematocrit 23 % (35-47); Hemoglobin 7.8 g/dL (12.0-16.0); Mean Corpuscular HGB Conc 34 g/dL (31-36); Mean Corpuscular Hemoglobin 28 pg (27-31); Mean Corpuscular Volume 85 fL (80-97); Platelet Count 448 10^3/uL (150-450); Red Blood Count 2.74 10^6 /uL (3.70-4.87); Red Cell Distribution Width 14 % (10-15); White Blood Count 5.9 10^3/uL (3.5-10.8)
[2021-02-21 06:30] LABS: Albumin 2.7 g/dL (3.2-5.2); Albumin/Globulin Ratio 0.7 (1-3); C Reactive Protein 244.19 mg/L (<8.01); Calcium 8.4 mg/dL (8.6-10.3); EGFR African American 181.7 (>60); EGFR Non-African American 150.2 (>60); Globulin 3.8 g/dL (2-4); Potassium 3.6 mmol/L (3.5-5.0); Total Bilirubin 0.3 mg/dL (0.2-1.0); Total Protein 6.5 g/dL (6.4-8.9)
[2021-02-21 08:36] LABS: ABS Eosinophils 0.3 10^3/ul (0-0.6); ABS Lymphocytes 1.1 10^3/ul (1.0-4.8); ABS Monocytes 0.4 10^3/ul (0-0.8); ABS Neutrophils 4.1 10^3/ul (1.5-7.7); Eosinophil % 4.5 %; Lymphocyte % 18.2 %; Nucleated Red Blood Cells % 0.1
[2021-02-22] MEDS: Piperacillin/Tazobactam VIAL 3.375 GM in NS 0.9% 100 ml BAG 100 ML IVPB SCH ×3 (09:13→23:20)
[2021-02-23] MEDS: Piperacillin/Tazobactam VIAL 3.375 GM in NS 0.9% 100 ml BAG 100 ML IVPB SCH ×3 (07:41→23:25)
[2021-02-23] MEDS: Nystatin TOP POWDER 15 GM BTL TOPICAL SCH (19:21)
[2021-02-24] MEDS: Piperacillin/Tazobactam VIAL 3.375 GM in NS 0.9% 100 ml BAG 100 ML IVPB SCH ×2 (08:51→16:02)
[2021-02-24] MEDS: Nystatin TOP POWDER 15 GM BTL TOPICAL SCH ×2 (08:52→20:00)
[2021-02-25] MEDS: Piperacillin/Tazobactam VIAL 3.375 GM in NS 0.9% 100 ml BAG 100 ML IVPB SCH ×2 (00:03→08:37)
[2021-02-25] MEDS: Nystatin TOP POWDER 15 GM BTL TOPICAL SCH (08:37)
[2021-02-25 15:53] VITALS: BP 135/80
[2021-02-25] MEDS ORDERED: cefTRIAXone 2 GM ADDV.VIAL 2 GM in NS 0.9% 100 ml BAG 100 ML IV SCH (16:00)
== END 2021-02-25 17:35 | disposition home or self-care (01) | DRG 721 ==
LOC: SSU 08:29 → ED 08:29
PROVIDERS: ADMIT Surgery Surgical Critical Care; ATTEND Surgery Surgical Critical Care

== ENCOUNTER 2023-10-26 09:53 | Inpatient (IN) ==
[~2023-10-26 09:53] MED LIST: NS 0.45% 1000 ml BAG 1,000 ML IV SCH; Naloxone 0.4 mg VIAL 0.4 mg/ml 1 ml VIAL IV PRN; Ondansetron 4 mg VIAL 2 MG/ML 2 ml VIAL IV PRN
[2023-10-26] MEDS ORDERED: ceFAZolin 2 GM in NS PREMIX 2 GM/100 ML BAG IVPB ONE (10:03)
[2023-10-26] MEDS ORDERED: Tranexamic Acid 1 GM/100ML BAG 2,000 MG/200 ML BAG IV ONE (10:03)
[2023-10-26 10:24] LABS: Rapid COVID-19 Molecular Undetected (Undetected)
[2023-10-26] MEDS ORDERED: Propofol 10 MG/ML 20 ML BTL ONE ×2 (10:26→14:29)
[2023-10-26] MEDS ORDERED: Midazolam 2 mg/2 ml VIAL 1 mg/ml 2 ml VIAL (2 mg) ONE (10:26)
[2023-10-26] MEDS ORDERED: fentaNYL 100 mcg/2 ml 50 MCG/ML VIAL ONE ×2 (10:26→16:41)
[2023-10-26] MEDS: Lactated Ringers 1000 ml BAG 1,000 ML IV SCH ×2 (11:31→18:47)
[2023-10-26] MEDS ORDERED: Rocuronium 50 mg VIAL 10 mg/ml 5 ml VIAL (50 mg) ONE ×2 (12:47→13:42)
[2023-10-26] MEDS ORDERED: ROPIVACAINE 5 MG/ML 30 ML BTL (0.5%) ONE (13:02)
[2023-10-26] MEDS ORDERED: Ondansetron 4 mg VIAL 2 MG/ML 2 ml VIAL ONE (13:37)
[2023-10-26] MEDS ORDERED: Dexamethasone IV 4 MG/ML VIAL 1 ml VIAL ONE (13:37)
[2023-10-26] MEDS ORDERED: HYDROmorphone 0.5 MG/0.5 ML SYRINGE ONE ×4 (14:02→14:47)
[2023-10-26] MEDS ORDERED: Labetalol IV 5 MG/ML 20 ml VIAL ONE (15:22)
[2023-10-26] MEDS ORDERED: Lactulose 30 ml UDC PO PRN (16:02)
[2023-10-26] MEDS ORDERED: Morphine 2 MG/ML SYRINGE IV PRN (16:02)
[2023-10-26] MEDS ORDERED: Magnesium Hydroxide LIQ 30 ML UDC PO PRN (16:02)
[2023-10-26] MEDS ORDERED: Ondansetron 4 mg VIAL 2 MG/ML 2 ml VIAL IV PRN (16:02)
[2023-10-26] MEDS: fentaNYL 100 mcg/2 ml 50 MCG/ML VIAL IV PRN (16:43)
[2023-10-26] MEDS: Buffered Lidocaine 1% SYRIN 1 ml INTRADERM ONE (18:19)
[2023-10-26] MEDS: Acetaminophen IV 1 GM/100ML 1,000 MG/100 ML BAG IV ONE (18:19)
[2023-10-26] MEDS: Scopolamine 1 mg/72hr PATCH TRANSDERM ONE (18:20)
[2023-10-26] MEDS: ceFAZolin 1 GM ADVAN 1 GM in NS 0.9% 50 ML 50 ML IVPB SCH (21:31)
[2023-10-26] MEDS: Magnesium Hydroxide LIQ 30 ML UDC PO SCH (21:32)
[2023-10-26] MEDS: Ondansetron ODT 4 mg TAB 4 MG TAB PO PRN (21:33)
[2023-10-27 05:42] LABS: Hematocrit 32.5 % (35-45); Mean Platelet Volume 8.5 fL (7.5-11.2); Platelet Count 225 10^3/uL (150-450)
[2023-10-27 05:59] LABS: Calcium 8.9 mg/dL (8.6-10.3); Creatinine, Serum 0.64 mg/dL (0.51-0.95); Potassium 4.6 mmol/L (3.5-5.0); eGFR CKD-EPI 104.3 (>60)
[2023-10-27] MEDS: Vitamin THERAPEUTIC TAB PO SCH (08:00)
[2023-10-27 11:14] VITALS: BP 118/64
== END 2023-10-27 13:50 | disposition home or self-care (01) | DRG 301 ==
LOC: AA 09:53 → SSU 17:34
PROVIDERS: ADMIT Orthopaedic Surgery Adult Reconstructive Orthopaedic Surgery; ATTEND Orthopaedic Surgery Adult Reconstructive Orthopaedic Surgery

== ENCOUNTER 2024-05-06 11:14 | Observation (INO) ==
[2024-05-06] MEDS: Morphine 4 MG/ML VIAL (1 ml) IV ONE ×2 (11:42→14:33)
[2024-05-06] MEDS: Ondansetron 4 mg VIAL 2 MG/ML 2 ml VIAL IV ONE (11:42)
[2024-05-06] MEDS: HYDROmorphone 0.5 MG/0.5 ML SYRINGE IV ONE (13:15)
[2024-05-06] MEDS: HYDROmorphone 1 MG/1 ML SYRINGE IV ONE (16:24)
[2024-05-06 17:39] LABS: ABS Eosinophils 0.1 10^3/uL (0.0-0.5); ABS Lymphocytes 2.7 10^3/uL (1.0-4.8); ABS Monocytes 0.6 10^3/uL (0.0-0.9); Eosinophil % 1.1 %; Hematocrit 36.6 % (35-45); Hemoglobin 12.2 g/dL (11.5-14.3); Lymphocyte % 32.2 %; Mean Corpuscular Hemoglobin 29.6 pg (27-33); Mean Corpuscular Hgb Conc 33.2 g/dL (31-36); Mean Corpuscular Volume 89.2 fL (80-97); Mean Platelet Volume 7.8 fL (7.5-11.2); Platelet Count 276 10^3/uL (150-450); Red Cell Distribution Width 14.3 % (12-17); White Blood Count 8.5 10^3/uL (3.8-11.8)
[2024-05-06 17:50] LABS: INR 1.04 (0.85-1.14)
[2024-05-06 18:10] LABS: Albumin 4.2 g/dL (3.2-5.2); Albumin/Globulin Ratio 1.6 (1-3); Creatinine, Serum 0.61 mg/dL (0.51-0.95); Globulin 2.7 g/dL (2-4); Potassium 4.3 mmol/L (3.5-5.0); Total Bilirubin 0.8 mg/dL (0.2-1.0); Total Protein 6.9 g/dL (6.4-8.9); eGFR CKD-EPI 104.9 (>60)
[2024-05-06] MEDS: Lidocaine PATCH 5% PATCH TRANSDERM SCH (18:45)
[2024-05-06] MEDS: Enoxaparin 40 MG/0.4 ML SYR SUBCUT SCH (22:04)
[2024-05-06] MEDS: Senna TAB 8.6 mg TAB PO SCH (22:04)
[2024-05-06] MEDS ORDERED: Naloxone Nasal Spray 4 MG/0.1 ML NASAL.SPR INTRANASAL PRN (22:12)
[2024-05-07] MEDS: HYDROmorphone 0.5 MG/0.5 ML SYRINGE IV SLOW PU PRN (05:36)
[2024-05-07 08:14] LABS: ABS Basophils 0.1 10^3/uL (0.0-0.1); ABS Eosinophils 0.2 10^3/uL (0.0-0.5); ABS Lymphocytes 2.3 10^3/uL (1.0-4.8); ABS Monocytes 0.5 10^3/uL (0.0-0.9); ABS Neutrophils 3.2 10^3/uL (1.5-7.6); ABS Nucleated RBC 0.01 10^3/ul; Eosinophil % 3.4 %; Hemoglobin 12.1 g/dL (11.5-14.3); Lymphocyte % 36.9 %; Mean Corpuscular Hgb Conc 33.5 g/dL (31-36); Mean Corpuscular Volume 89.6 fL (80-97); Nucleated Red Blood Cells % 0.1 %/100WBC (0.0-0.8); Platelet Count 254 10^3/uL (150-450); Red Blood Count 4.02 10^6/uL (3.63-4.92); Red Cell Distribution Width 14.5 % (12-17); White Blood Count 6.3 10^3/uL (3.8-11.8)
[2024-05-07 08:56] LABS: Calcium 9.1 mg/dL (8.6-10.3); Creatinine, Serum 0.58 mg/dL (0.51-0.95); Magnesium 1.9 mg/dL (1.9-2.7); Potassium 4.2 mmol/L (3.5-5.0); eGFR CKD-EPI 106.1 (>60)
[2024-05-08] MEDS: Polyethylene Glycol 3350 17 GM PACKET PO PRN (05:29)
[2024-05-11] MEDS: Magnesium Hydroxide LIQ 30 ML UDC PO PRN (10:52)
[2024-05-11 13:42] VITALS: BP 103/63
== END 2024-05-11 15:10 | disposition home or self-care (01) ==
LOC: ED 11:14 → EDHOLD 11:14 → SUATTDRO 16:29 → SSU 16:52
PROVIDERS: ADMIT Hospitalist; ATTEND Student in an Organized Health Care Education/Training Program